=== PATIENT | female | born 1940 | race Caucasian/White ===

== ENCOUNTER → 2016-06-12 | Outpatient (CLI) | payer MEDICARE, OTHER | LOC: GMAL 13:12 | PROVIDERS: ATTEND Family Medicine | DX: D51.3 Other dietary vitamin B12 deficiency anemia (principal); R53.82 Chronic fatigue, unspecified; E55.9 Vitamin D deficiency, unspecified ==

== ENCOUNTER → 2016-06-23 | Outpatient (CLI) | payer MEDICARE, OTHER | LOC: GMAL 14:40 | PROVIDERS: ATTEND Family Medicine | DX: D53.9 Nutritional anemia, unspecified (principal) ==

== ENCOUNTER → 2016-08-05 | Outpatient (CLI) | payer MEDICARE, OTHER ==
--- NOTE | 2016-08-06 10:25 | MRI ---
EXAM DESCRIPTION: Lumbar Spine w/o Contrast CLINICAL HISTORY: 76 years, Female, LOW BACK PAIN COMPARISON: None TECHNIQUE: Multiplanar multi sequence images of the lumbar spine were obtained without gadolinium contrast. FINDINGS: Vertebral body height and alignment are well maintained. No bone marrow signal abnormalities are noted. The conus lies posterior to the L1 body, and the cauda equina is unremarkable. The paraspinal and visualized retroperitoneal soft tissues are unremarkable. At L1-2, there is no disc bulging or facet joint degeneration. At L2-3, there is mild left foraminal and left lateral disc bulging. The facet joints are well maintained, and there is no central canal or neuroforaminal stenosis. At L3-4, there is disc desiccation with mild concentric disc bulging. No facet joint hypertrophy, central canal or neuroforaminal stenosis. At L4-5, there is disc desiccation with concentric disc bulging, worse in the posterior left paramidline and left foraminal positions. The facet joints are well maintained, but findings result in mild to moderate bilateral neuroforaminal stenosis, worse on the left side. Disc material approaches and possibly abuts the left L5 nerve root in the lateral recess. At L5-S1, there is disc desiccation with mild concentric disc bulging and mild bilateral facet joint hypertrophy. No central canal or neuroforaminal stenosis. IMPRESSION: Disc bulging at L4-5 resulting in mild to moderate bilateral neuroforaminal stenosis and possible nerve root abutment as detailed above. Less advanced degenerative changes elsewhere in the lumbar spine without additional stenosis or abutment. Electronically signed by: Bairon Narayan MD 08/06/2016 10:24 AM [employer]
== END | disposition home or self-care (01) ==
LOC: MRI 13:15
PROVIDERS: ATTEND Family Medicine
DX: M54.5 Low back pain (principal)

== ENCOUNTER → 2016-09-09 | Outpatient (CLI) | payer MEDICARE, OTHER ==
--- NOTE | 2016-09-10 08:30 | MRI ---
Study: MRI of the Left Shoulder. Indication: SHOULDER PAIN Technique: Multiplanar, multi sequence MRI of the left shoulder was obtained without intravenous contrast. Comparison: None. Findings: Mild AC joint osteoarthritis. Type II acromion with mild lateral downsloping. Moderate volume subacromial/subdeltoid bursal fluid. Supraspinatus and infraspinatus tendinosis. High-grade bursal surface tearing suspected of the anterior leading edge supraspinatus tendon and may extend full thickness. The tear defect measures approximately 7 mm AP by 4 mm transverse. No tendon retraction. Subscapularis tendinosis. Teres minor tendon intact. Marrow edema anterior greater tuberosity. Rotator cuff musculature normal without atrophy, fatty infiltration, or intramuscular edema. Long head biceps tendon intact. Circumferential labral truncation noted. Mild glenohumeral joint osteoarthritis with a tiny joint effusion. No acute fracture. Port noted within the anterior left chest. Impression: High grade bursal surface tearing anterior leading edge supraspinatus tendon which may extend full thickness. Infraspinatus and subscapularis tendinosis. Circumferential labral truncation noted. Mild glenohumeral joint osteoarthritis. Mild AC joint osteoarthritis. Moderate subacromial/subdeltoid bursal fluid. Electronically signed by: Alek Harris MD 09/10/2016 8:30 AM CDT
== END | disposition home or self-care (01) ==
LOC: MRI 14:06
PROVIDERS: ATTEND Family Medicine
DX: M19.012 Primary osteoarthritis, left shoulder (principal)

== ENCOUNTER → 2016-12-30 | Outpatient (CLI) | payer MEDICARE, OTHER | LOC: GMAL 17:31 | PROVIDERS: ATTEND Family Medicine | DX: D51.3 Other dietary vitamin B12 deficiency anemia (principal); D53.9 Nutritional anemia, unspecified; Z79.899 Other long term (current) drug therapy ==

== ENCOUNTER → 2017-04-01 | Outpatient (CLI) | payer MEDICARE, OTHER | END | disposition home or self-care (01) | LOC: GMAL 18:20 | PROVIDERS: ATTEND Family Medicine | DX: N39.0 Urinary tract infection, site not specified (principal) ==

== ENCOUNTER → 2017-04-03 | Outpatient (CLI) | payer MEDICARE, OTHER | END | disposition home or self-care (01) | LOC: LAB.O 14:49 | PROVIDERS: ATTEND Family Medicine | DX: R19.7 Diarrhea, unspecified (principal) ==

== ENCOUNTER → 2017-04-09 | Outpatient (CLI) | payer MEDICARE, OTHER | END | disposition home or self-care (01) | LOC: GMAL 17:19 | PROVIDERS: ATTEND Family Medicine | DX: H57.04 Mydriasis (principal) ==

== ENCOUNTER 2017-06-30 22:25 | Emergency (ER) | payer MEDICARE, OTHER ==
--- NOTE | 2017-06-30 23:13 | ED.PDOC ---
History of Present Illness - General Chief Complaint: General Stated Complaint: doesn't feel right Time Seen by Provider: 06/30/17 22:57 Source: patient Exam Limitations: no limitations - History of Present Illness Initial Comments: SHE WAS AT A [place] FUNCTION AND SUDDENLY SHE FELT LIGHT HEADED AND WEAK. SOME OF HER FRIENDS BECAME CONCERNED AND THE MEDICS WERE SUMMONED.VITALS WERE NORMAL AND SHE WAS RELEASED. SHE WENT HOME AND CONTINUED FEELING WEAK AND SOMNOLENT AND LIGHT HEADED. SHE ELECTED TO COME TO THE ED. Timing/Duration: 1-3 hours Severity: moderate Improving Factors: nothing Worsening Factors: nothing Associated Symptoms: denies symptoms Allergies/Adverse Reactions: Allergies NO KNOWN ALLERGY Allergy (Verified 03/15/13 10:58) Home Medications: Ambulatory Orders Levocetirizine Dihydrochloride [Levocetirizine Dihydrochl] 5 mg PO HS #0 Estrogens, Conjugated [Premarin] 0.3 mg PO HS #0 03/17/13 Pantoprazole Suspension [Protonix Suspension] 40 mg PO DAILY #0 03/17/13 Nitrofurantoin Monohyd Macro [Nitrofurantoin Monohydrat] 100 mg PO BID 10/13/13 Calcium 600 mg PO DAILY 03/16/16 Clonazepam 2 mg PO HS 03/16/16 Eszopiclone [Lunesta] 3 mg PO HS PRN 03/16/16 Pravastatin Sodium [Pravachol] 40 mg PO DAILY 03/16/16 QUEtiapine FUMARATE [Seroquel] 50 mg PO HS 03/16/16 Sumatriptan Succinate [Imitrex] 100 mg PO DAILY 03/16/16 Review of Systems - Review of Systems Constitutional: States: malaise, weakness EENTM: States: no symptoms reported Respiratory: States: no symptoms reported Cardiology: States: no symptoms reported Gastrointestinal/Abdominal: States: no symptoms reported Genitourinary: States: no symptoms reported Musculoskeletal: States: no symptoms reported Skin: States: no symptoms reported Neurological: States: weakness Endocrine: States: no symptoms reported Hematologic/Lymphatic: States: no symptoms reported Past Medical History (General) - Patient Medical History Hx Seizures: No Hx Stroke: No Hx Asthma: No Hx of COPD: No Hx Cardiac Disorders: No Hx Congestive Heart Failure: No Hx Pacemaker: No Hx Hypertension: No Hx Diabetes: No Hx Cancer: Yes Hx MRSA: No Surgical History: appendectomy - Vaccination History Hx Influenza Vaccination: Yes Hx Pneumococcal Vaccination: Yes - Social History Hx Tobacco Use: Yes Hx Alcohol Use: No Hx Substance Use: No Hx Substance Use Treatment: No Hx Depression: Yes Hx Physical Abuse: No Hx Emotional Abuse: No - Female History Patient is a Female of Child Bearing Age (10 -59 yrs old): No Family Medical History - Family History Mother Family History: Unknown Physical Exam - Physical Exam General Appearance: Alert, Anxious Eye Exam: bilateral abnormal pupil - ANISOCORIA Ears, Nose, Throat: hearing grossly normal, normal ENT inspection, normal pharynx Neck: non-tender, full range of motion, supple Respiratory: chest non-tender, lungs clear, normal breath sounds, no respiratory distress, no accessory muscle use Cardiovascular/Chest: normal peripheral pulses, regular rate, rhythm, no edema, no gallop, no JVD Peripheral Pulses: radial,right: 2+, radial,left: 2+ Gastrointestinal/Abdominal: normal bowel sounds, non tender, soft, no organomegaly, no pulsatile mass Rectal Exam: deferred Back Exam: normal inspection Extremity: normal range of motion Neurologic: no motor/sensory deficits, alert, oriented x 3 Skin Exam: normal color Lymphatic: no adenopathy Progress - Results/Orders Results/Orders: EKG INTERPRETATION: HR OF 70, NV INTERVAL OF 216, QRS OF 72, QTC OF 447, AXIS OF 21 DEGREES. IMPRESSION: SINUS RHYTHM, FIRST DEGREE AV BLOCK. THERE ARE NO TRACINGS TO COMPARE WITH. CBC IS NORMAL, COAGS WNL. CT BRAIN: MILD ATROPHY NO ACUTE PROCESS NOTED. CXR: NO ACUTE PROCESS NOTED AFTER 1000 CC OF NS AND 6MG OF IMITREX SHE FEELS IMPROVED. THE ANISOCORIA IS STILL PRESENT. THE PATIENT VOICES THAT THIS HAS BEEN PRESENT BEFORE PRIMARILY WHENEVER SHE DEVELOPS "SILENT MIGRAINS". AT SOME POINT DR. FONTANA SENT THIS PATIENT TO [facility] FOR THE SAME REASON AND THAT WHERE SHE WAS DIAGNOSED WITH SILENT MIGRAINS. I WILL GIVE ANOTHER LITER OF NS AND THEN I WILL DC THE PATIENT TO F/U WITH DR. FONTANA. FEELS MUCH BETTER, WILL DC HOME. Departure - Departure Clinical Impression: Migraine aura without headache, Volume depletion Time of Disposition: 03:13 Disposition: Discharge to Home or Self Care Condition: Good Departure Forms: ED Discharge - Pt. Copy, Patient Portal Self Enrollment Diet: resume usual diet Activity: increase activity as tolerated Referrals: Kike Fontana III, MD [Primary Care Provider] - 1-2 Weeks Home Medications: Ambulatory Orders Levocetirizine Dihydrochloride [Levocetirizine Dihydrochl] 5 mg PO HS #0 Estrogens, Conjugated [Premarin] 0.3 mg PO HS #0 03/17/13 Pantoprazole Suspension [Protonix Suspension] 40 mg PO DAILY #0 03/17/13 Nitrofurantoin Monohyd Macro [Nitrofurantoin Monohydrat] 100 mg PO BID 10/13/13 Calcium 600 mg PO DAILY 03/16/16 Clonazepam 2 mg PO HS 03/16/16 Eszopiclone [Lunesta] 3 mg PO HS PRN 03/16/16 Pravastatin Sodium [Pravachol] 40 mg PO DAILY 03/16/16 QUEtiapine FUMARATE [Seroquel] 50 mg PO HS 03/16/16 Sumatriptan Succinate [Imitrex] 100 mg PO DAILY 03/16/16 Additional Instructions: FOLLOW UP WITH DR. FONTANA
--- NOTE | 2017-07-01 00:07 | CT ---
EXAM DESCRIPTION: Head CLINICAL HISTORY: ANISOCORIA, LIGHT HEADED COMPARISON: MRI brain from 03/21/2013 TECHNIQUE: Axial CT of the head obtained from the skull apex to the skull base without contrast. FINDINGS: No acute intracranial hemorrhage identified. No mass, mass effect, shift of the midline, abnormal extra-axial fluid collection or CT evidence of acute ischemic change identified. The ventricular system and sulcal spaces are mildly enlarged compatible with mild cerebral atrophy. Scattered areas of hypodensity throughout the supratentorial white matter are nonspecific and may be related to chronic small vessel ischemic change. The visualized paranasal sinuses and the mastoids are clear. No skull fracture identified. Visualized orbits and globes are unremarkable. Atherosclerotic calcification of the intracranial internal carotid arteries. DLP: 967.47 mGy-cm IMPRESSION: 1. No acute intracranial abnormality by CT criteria. This exam was performed according to our departmental dose-optimization program, which includes automated exposure control, adjustment of the mA and/or kV according to patient size and/or use of iterative reconstruction technique. 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
--- NOTE | 2017-07-01 00:08 | RAD ---
EXAM DESCRIPTION: Chest,1 View CLINICAL HISTORY: SOB COMPARISON: 04/12/2016 FINDINGS: Single frontal view of the chest. Left subclavian Mediport with tip in the SVC. Postoperative change in the left chest. Atherosclerotic calcification tortuosity of the thoracic aorta. Heart is not enlarged. No consolidation, pneumothorax, or pleural effusion. No displaced rib fractures identified. Upper abdominal soft tissues are unremarkable. IMPRESSION: 1. No acute pulmonary process identified. Electronically signed by: Torin Graham 07/01/2017 12:07 AM [facility]
[2017-07-01] MEDS ORDERED: SODIUM CHLORIDE 0.9% 1000ML 1,000 ML IVS ONE ×2 (00:18→01:58)
[2017-07-01] MEDS ORDERED: SUMAtriptan SUCCINATE INJ 6 MG/0.5 ML VIAL SUBCU ONE (00:42)
[2017-07-01 02:48] VITALS: O2SAT 99
[2017-07-01 03:37] VITALS: BP 122/73; TEMP 96.8
== END 2017-07-01 04:06 | disposition home or self-care (01) ==
LOC: ER 22:25
DX: G43.109 Migraine with aura, not intractable, without status migrainosus (principal); E86.9 Volume depletion, unspecified; F32.9 Major depressive disorder, single episode, unspecified; Z87.891 Personal history of nicotine dependence
CPT/HCPCS: 36415; 70450; 71045; 80053; 85025; 85610; 85651; 85730; 93005; J3030; J7030

== ENCOUNTER → 2017-09-08 | Outpatient (CLI) | payer MEDICARE, OTHER ==
--- NOTE | 2017-09-08 21:05 | MRI ---
EXAM DESCRIPTION: Lumbar Spine w/o Contrast MRI. CLINICAL HISTORY: LOW BACK PAIN COMPARISON: MRI lumbar spine 08/05/2016. TECHNIQUE: Multiplanar, multiple standard sequences, non contrast MRI, lumbar spine. FINDINGS: L5-S1: Disc desiccation with disc space preserved. Posterior midline 3 mm bulge. Mild narrowing of the left foramen with right foramen patent. Canal patent. Minimal arthrosis of the left facet. L4-5: Disc desiccation. Posterior left paracentral 5 mm protrusion encroaching on the thecal sac and abutting the descending left L5 nerve in the left subarticular recess. Moderate left paracentral canal narrowing. Bilateral foramina are patent. Posterior elements unremarkable. L3-4: Minimal disc desiccation. Minimal disc space loss. Tiny posterior midline bulge. Posterior elements unremarkable. Canal and foramina are patent. L2-3: Disc desiccation with disc space preserved. No bulging. Facets are unremarkable. Posterior flavum ligaments with mild hypertrophy. L1-2: Normal signal in the disc and disc space preserved and no bulging. Posterior elements unremarkable. Canal and foramina are patent. T12-L1: Normal signal in the disc and disc space preserved with no bulging. Posterior elements unremarkable. Canal and foramina are patent. Conus terminates at L1. Levoscoliosis L2-L4. Paravertebral soft tissues show muscle atrophy. Normal marrow signal in the remaining vertebral bodies and the posterior elements. Vertebral bodies are not compressed at any level. IMPRESSION: 1. Posterior midline bulge L5-S1 disc. Mild narrowing of the left foramen. Minimal arthrosis of the left facet. 2. Desiccated L4-5 disc with left paracentral protrusion encroaching on the thecal sac and abutting the descending left L5 nerve in the lateral recess. Stable since the prior study. Bilateral foramina are patent. Electronically signed by: Felton Monroe MD 09/08/2017 9:04 PM CDT Workstation: [id number]
== END | disposition home or self-care (01) ==
LOC: MRI 13:00
PROVIDERS: ATTEND Family Medicine
DX: M51.36 Other intervertebral disc degeneration, lumbar region (principal); M51.26 Other intervertebral disc displacement, lumbar region

== ENCOUNTER → 2017-10-02 | Outpatient (CLI) | payer MEDICARE, OTHER ==
--- NOTE | 2017-10-04 12:06 | MRI ---
EXAM DESCRIPTION: Brain w/wo Contrast: Magnetic Resonance Imaging. CLINICAL HISTORY: HEADACHES COMPARISON: MRI scan of the brain with and without gadolinium IV contrast 03/21/2013. TECHNIQUE: Multiplanar, high-field MRI, multiple conventional sequences, without and with gadolinium IV contrast. No adverse reactions. Multiple axial diffusion sequences. FINDINGS: Scattered foci of bilateral hyperintense FLAIR and T2-weighted signal in the periventricular white matter and go-white matter junctions of the cerebral hemispheres. . Normal signal in the bilateral basal ganglia. No hemorrhage, no cerebral edema, no mass-effect. Normal contrast enhancement. Normal signal in the brainstem and cerebellar hemispheres. No hemorrhage, no cerebral edema, no mass-effect. Normal contrast enhancement. Concordance of the diffusion and non-diffusion sequences with no evidence of acute or subacute infarction. Cortical sulci, ventricles, and other CSF spaces, and the subdural spaces are normally configured except more prominent cortical sulci abutting the frontal lobes. This is chronic. No effacement or displacement. No midline shift. No extra-axial hemorrhage. Normal contrast enhancement. Normal flow signal void in the major vessels of the [place], and the venous sinuses. IACs are symmetric bilaterally. Normal signal in the bilateral mastoid air cells. No mass effect in the bilateral Cerebellopontine angles. Normal contrast enhancement. Pituitary gland occupies most of the sella. Normal contrast enhancement. Base of the cerebellar tonsils is at the level of the foramen magnum. No significant abnormalities in the paranasal sinuses. The bony calvarium is intact. IMPRESSION: 1. Minimal focal hyperintensities in the white matter of the cerebral hemispheres predominantly. Ventricular. This is most likely related to cerebral microvascular disease. No hemorrhage or abnormal contrast enhancement in these lesions. No diffusion restriction. Less likely related to migraine headaches, demyelination process, vasculitis, or inflammation. Stable since the prior study March 2013. 2. Normal MRI diffusion noncontrast brain scan with no evidence of acute or subacute infarction. Electronically signed by: Felton Monroe MD 10/04/2017 12:04 PM CDT
== END ==
LOC: MRI 11:00
PROVIDERS: ATTEND Family Medicine
DX: R51 Headache (principal); R53.82 Chronic fatigue, unspecified; D51.3 Other dietary vitamin B12 deficiency anemia; R41.89 Other symptoms and signs involving cognitive functions and awareness; E34.9 Endocrine disorder, unspecified

== ENCOUNTER 2017-10-16 16:09 | Emergency (ER) | payer MEDICARE, OTHER ==
--- NOTE | 2017-10-16 16:44 | ED.PDOC ---
History of Present Illness - General Chief Complaint: Neuro Symptoms/Deficits Stated Complaint: Episodes of confusion Time Seen by Provider: 10/16/17 16:10 Source: patient Exam Limitations: other - MILD APHASIA Additional Information: PT HAS BEEN UNDERGOING OUTPT WORKUP FOR POSS EARLY DEMENTIA. TODAY SHE WAS GOING TO A LOCATION IN [place]OWN SHE HAD BEEN TO ON MULTIPLE OCCASIONS AND GOT LOST. SHE SHOWED UP AT HER DOCTOR'S OFFICE DISTRESSED. HE REQUESTED SHE COME TO ER FOR EVALUATION AND ADMISSION. - History of Present Illness Timing/Duration: other - OCCURED THIS AM BUT PT MISUNDERSTOOD AND DID NOT SHOW UP TO ER UNTIL MUCH LATER. Improving Factors: nothing Worsening Factors: nothing Associated Symptoms: denies symptoms Allergies/Adverse Reactions: Allergies NO KNOWN ALLERGY Allergy (Verified 03/15/13 10:58) Home Medications: Ambulatory Orders Levocetirizine Dihydrochloride [Levocetirizine Dihydrochl] 5 mg PO HS #0 Estrogens, Conjugated [Premarin] 0.3 mg PO HS #0 03/17/13 Pantoprazole Suspension [Protonix Suspension] 40 mg PO DAILY #0 03/17/13 Nitrofurantoin Monohyd Macro [Nitrofurantoin Monohydrat] 100 mg PO BID 10/13/13 Calcium 600 mg PO DAILY 03/16/16 Clonazepam 2 mg PO HS 03/16/16 Eszopiclone [Lunesta] 3 mg PO HS PRN 03/16/16 Pravastatin Sodium [Pravachol] 40 mg PO DAILY 03/16/16 QUEtiapine FUMARATE [Seroquel] 50 mg PO HS 03/16/16 Sumatriptan Succinate [Imitrex] 100 mg PO DAILY 03/16/16 Review of Systems - Review of Systems Constitutional: States: other - HER POST SCALP APPEARS WET. PT DOES NOT KNOW HOW. . Denies: chills, fever EENTM: States: no symptoms reported Respiratory: Denies: cough, orthopnea, short of breath Cardiology: Denies: chest pain, palpitations, syncope Gastrointestinal/Abdominal: States: no symptoms reported Genitourinary: States: no symptoms reported Musculoskeletal: States: no symptoms reported Skin: States: no symptoms reported Neurological: States: other - PT HAS HAD SOME MEMORY DIFFICULTY. Denies: headache, numbness, weakness Endocrine: States: no symptoms reported Hematologic/Lymphatic: States: no symptoms reported Past Medical History (General) - Patient Medical History Hx Seizures: No Hx Stroke: No Hx Asthma: No Hx of COPD: No Hx Cardiac Disorders: Yes - Hypercholesterolemia Hx Congestive Heart Failure: No Hx Pacemaker: No Hx Hypertension: No Hx Diabetes: No Hx Gastroesophageal Reflux: Yes Hx Cancer: Yes Hx MRSA: No Surgical History: noncontributory - Vaccination History Hx Influenza Vaccination: Yes - 2017 Hx Pneumococcal Vaccination: Yes - Social History Hx Tobacco Use: No Hx Alcohol Use: No Hx Substance Use: No Hx Substance Use Treatment: No Hx Depression: Yes Hx Physical Abuse: No Hx Emotional Abuse: No Family Medical History - Family History Mother Family History: Unknown Physical Exam - Physical Exam General Appearance: Alert, No apparent distress Eye Exam: bilateral normal Ears, Nose, Throat: hearing grossly normal, normal ENT inspection, normal pharynx Neck: non-tender, full range of motion, supple Respiratory: lungs clear, normal breath sounds, no respiratory distress Cardiovascular/Chest: regular rate, rhythm, no murmur Gastrointestinal/Abdominal: normal bowel sounds, non tender, soft, no organomegaly Back Exam: normal inspection, no CVA tenderness Extremity: normal range of motion, normal inspection, no pedal edema 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 OLD LAB REVIEWED, CURRENTLY STABLE. D/W [facility] D/W DR FONTANA. OK TO FOLLOW ON THURSDAY. - EKG/XRAY/CT XRAY: chest - PORT L CHEST, POST SURGICAL CHANGES. MALICK. Departure - Departure Clinical Impression: Altered mental state Qualifiers: Altered mental status type: transient alteration of awareness Qualified Code(s) : R40.4 - Transient alteration of awareness Time of Disposition: 19:09 Disposition: Discharge to Home or Self Care Condition: Good Departure Forms: ED Discharge - Pt. Copy, Patient Portal Self Enrollment Instructions: DI for Altered Mental Status Referrals: Kike Fontana III, MD [Primary Care Provider] - 1-2 Weeks Home Medications: Ambulatory Orders Levocetirizine Dihydrochloride [Levocetirizine Dihydrochl] 5 mg PO HS #0 Estrogens, Conjugated [Premarin] 0.3 mg PO HS #0 03/17/13 Pantoprazole Suspension [Protonix Suspension] 40 mg PO DAILY #0 03/17/13 Nitrofurantoin Monohyd Macro [Nitrofurantoin Monohydrat] 100 mg PO BID 10/13/13 Calcium 600 mg PO DAILY 03/16/16 Clonazepam 2 mg PO HS 03/16/16 Eszopiclone [Lunesta] 3 mg PO HS PRN 03/16/16 Pravastatin Sodium [Pravachol] 40 mg PO DAILY 03/16/16 QUEtiapine FUMARATE [Seroquel] 50 mg PO HS 03/16/16 Sumatriptan Succinate [Imitrex] 100 mg PO DAILY 03/16/16
--- NOTE | 2017-10-16 16:52 | RAD ---
EXAM DESCRIPTION: Chest,2 Views CLINICAL HISTORY: 77 years Female, AMS COMPARISON: 30 June 2017 TECHNIQUE: PA/lateral FINDINGS: An [id number] catheter seen in place on the patient's left. The lungs are free of acute infiltrate or evidence of effusion. Surgical clips are seen about the left anterior chest wall. The heart is within range of normal. IMPRESSION: I see no acute cardiopulmonary pathology or significant interval change. Electronically signed by: Kike Ga MD 10/16/2017 4:50 PM CDT
--- NOTE | 2017-10-16 18:35 | CT ---
EXAM DESCRIPTION: Head CLINICAL HISTORY: AMS COMPARISON: June 30, 2017 Technique: Contiguous axial images of the brain were obtained without the administration of intravenous contrast. This exam was performed according to our departmental dose-optimization program which includes use of Automated Exposure Control, adjustment of the mA and/or kV according to patient size and/or use of iterative reconstruction technique. Findings: Brain: Moderate cerebral atrophy. Periventricular and deep white matter hypodensities, most commonly due to nonspecific white matter chronic microvascular ischemia.No hemorrhage. No territorial infarct. No mass effect. No herniation. Ventricles: Within normal limits for patient's age. Bones: No acute osseous abnormality. Paranasal sinuses: Unremarkable. Mastoid air cells: Unremarkable. Soft tissues: No acute abnormality. IMPRESSION: No acute intracranial abnormalities. Unchanged moderate cerebral atrophy and nonspecific white matter chronic microvascular ischemic changes. Electronically signed by: Dilip Garcia MD 10/16/2017 6:34 PM CDT
[2017-10-16 19:17] VITALS: BP 154/85; TEMP 98.5; O2SAT 95
== END 2017-10-16 19:17 | disposition home or self-care (01) ==
LOC: ER 16:09
DX: R40.4 Transient alteration of awareness (principal); E78.00 Pure hypercholesterolemia, unspecified; K21.9 Gastro-esophageal reflux disease without esophagitis; Z85.9 Personal history of malignant neoplasm, unspecified; Z79.899 Other long term (current) drug therapy

== ENCOUNTER → 2017-11-30 | Outpatient (CLI) | payer MEDICARE, OTHER | LOC: GMAL 14:28 | PROVIDERS: ATTEND Family Medicine | DX: R30.0 Dysuria (principal) ==

== ENCOUNTER → 2018-02-22 | Outpatient (CLI) | payer MEDICARE, OTHER ==
--- NOTE | 2018-02-22 10:44 | US ---
EXAM DESCRIPTION: Renal Arteries CLINICAL HISTORY: 77 years Female, HTN I10 COMPARISON: CT of the abdomen pelvis September 18, 2014. TECHNIQUE: Routine 2-D window ultrasound was performed and showed to Doppler interrogation of the renal vasculature. FINDINGS: Right kidney is normal in size measuring up to 11 cm in length. Diffuse renal cortical atrophy is seen to average parenchymal thickness measuring 0.9 cm. Corticomedullary differentiation is maintained. No hydronephrosis or nephrolithiasis is demonstrated. No aggressive renal lesions are evident. Renal arterial Doppler shows normal peak systolic velocities. The proximal right renal artery is not well seen to characterize. The mid and distal renal artery show normal peak systolic velocities and resistive indices. The left kidney is normal in size measuring up to 9.2 cm in length. The cortical thickness is normal. Corticomedullary differentiation is maintained. No hydronephrosis or nephrolithiasis is demonstrated. Aggressive renal lesions are present. Renal arterial Doppler shows normal peak systolic velocities. The proximal left renal artery is not well seen to characterize. The mid and distal renal artery show normal peak systolic velocities and resistive indices. IMPRESSION: Nonspecific right renal cortical atrophy. Normal-appearing left kidney. Limited evaluation of the proximal bilateral renal arteries. The visualized portions of the bilateral renal arteries are unremarkable excluding a high-grade renal artery stenosis. Electronically signed by: Doron Hinson MD 02/22/2018 10:43 AM CDT
--- NOTE | 2018-02-22 10:46 | US ---
EXAM DESCRIPTION: Renal ultrasound. CLINICAL HISTORY: 77 years Female, HTN I10 COMPARISON: CT of the abdomen pelvis September 18, 2014. TECHNIQUE: Routine 2-D renal ultrasound was performed in addition to Doppler interrogation of the renal vasculature. FINDINGS: Right kidney is normal in size measuring up to 11 cm in length. Diffuse renal cortical atrophy is seen to average parenchymal thickness measuring 0.9 cm. Corticomedullary differentiation is maintained. No hydronephrosis or nephrolithiasis is demonstrated. No aggressive renal lesions are evident. Renal arterial Doppler shows normal peak systolic velocities. The proximal right renal artery is not well seen to characterize. The mid and distal renal artery show normal peak systolic velocities and resistive indices. The left kidney is normal in size measuring up to 9.2 cm in length. The cortical thickness is normal. Corticomedullary differentiation is maintained. No hydronephrosis or nephrolithiasis is demonstrated. Aggressive renal lesions are present. Renal arterial Doppler shows normal peak systolic velocities. The proximal left renal artery is not well seen to characterize. The mid and distal renal artery show normal peak systolic velocities and resistive indices. IMPRESSION: Nonspecific right renal cortical atrophy. Normal-appearing left kidney. Limited evaluation of the proximal bilateral renal arteries. The visualized portions of the bilateral renal arteries are unremarkable excluding a high-grade renal artery stenosis. Electronically signed by: Doron Hinson MD 02/22/2018 10:44 AM CDT
== END ==
LOC: US 09:00
PROVIDERS: ATTEND Family Medicine
DX: I10 Essential (primary) hypertension (principal); N26.1 Atrophy of kidney (terminal)

== ENCOUNTER → 2018-06-22 | Outpatient (CLI) | payer MEDICARE, OTHER | LOC: GMAL 11:14 | PROVIDERS: ATTEND Family Medicine | DX: D51.3 Other dietary vitamin B12 deficiency anemia (principal); R53.82 Chronic fatigue, unspecified; E55.9 Vitamin D deficiency, unspecified ==

== ENCOUNTER 2018-09-12 03:00 | Emergency (ER) | payer MEDICARE, OTHER ==
[2018-09-12 03:19] VITALS: O2SAT 98
[2018-09-12] MEDS: ONDANSETRON INJ 4 MG/2 ML VIAL IV ONE (03:47)
[2018-09-12] MEDS: SODIUM CHLORIDE 0.9% 1000ML 1,000 ML IVS ONE (03:48)
--- NOTE | 2018-09-12 05:05 | ED.PDOC ---
History of Present Illness - General Chief Complaint: GI Problem Stated Complaint: nausea, vomiting Time Seen by Provider: 09/12/18 03:30 Information Source: patient, Vital Signs reviewed Exam Limitations: no limitations - History of Present Illness Initial Comments: c/o N/V/D soon after eating lunch today. No abdominal pain or bleeding. Feels weak. Timing/Duration: 7-24 hours Improving Factors: nothing, other - no relief with Lomotil Worsening Factors: nothing Associated Symptoms: diarrhea, fatigue, nausea/vomiting, weakness Review of Systems - Review of Systems Constitutional: States: no symptoms reported EENTM: States: no symptoms reported Respiratory: States: no symptoms reported Cardiology: States: no symptoms reported Gastrointestinal/Abdominal: States: see HPI. Denies: abdominal pain Genitourinary: States: no symptoms reported Musculoskeletal: States: no symptoms reported Skin: States: no symptoms reported Neurological: States: see HPI Hematologic/Lymphatic: States: no symptoms reported Past Medical History (General) - Patient Medical History Hx Seizures: No Hx Stroke: No Hx Dementia: No Hx Asthma: No Hx of COPD: No Hx Cardiac Disorders: No Hx Congestive Heart Failure: No Hx Pacemaker: No Hx Hypertension: Yes Hx Thyroid Disease: No Hx Diabetes: No Hx Gastroesophageal Reflux: No Hx Renal Disease: No Hx Cancer: Yes - rec'd chemotherapy. Hx of HIV: No Hx MRSA: No Surgical History: no surgical history - Vaccination History Hx Tetanus, Diphtheria Vaccination: No Hx Influenza Vaccination: Yes Hx Pneumococcal Vaccination: Yes - Social History Hx Tobacco Use: No Hx Alcohol Use: No Hx Substance Use: No Hx Substance Use Treatment: No Hx Depression: Yes Hx Physical Abuse: No Hx Emotional Abuse: No Family Medical History - Family History Mother Family History: Unknown Physical Exam - Physical Exam General Appearance: Alert, Comfortable, No apparent distress Eyes, Ears, Nose, Throat Exam: normal ENT inspection, other - dry oral mucosa Neck: supple, normal inspection Respiratory: no respiratory distress Cardiovascular/Chest: regular rate, rhythm, no edema, no JVD Gastrointestinal/Abdominal: non tender, soft Extremity: normal inspection, no pedal edema Neurologic: alert, normal mood/affect, oriented x 3 Skin Exam: normal color, warm/dry Special Observations: No evidence of discomfort Progress - Progress Progress: 09/12/18 05:03 Asymptomatic. Tolerating PO. No vomiting or diarrhea here. 09/12/18 06:14 78 yo female with vomiting & diarrhea for approx 12 hrs without hematemesis or hematochezia. No abdominal pain. Clinically appeared mildly dehydrated. She improved with Zofran & IVF. Her BUN/Cr was slightly elevated. - Results/Orders Results/Orders: WBC 3 Plt 107 Departure - Departure Clinical Impression: Acute diarrhea, Volume depletion Vomiting Qualifiers: Vomiting type: unspecified Vomiting Intractability: non-intractable Nausea presence: with nausea Qualified Code(s): R11.2 - Nausea with vomiting, unspecified Time of Disposition: 05:04 Disposition: Discharge to Home or Self Care Condition: Fair Departure Forms: ED Discharge - Pt. Copy, Patient Portal Self Enrollment Instructions: DI for Diarrhea and Traveler's Diarrhea -- Adult Diet: bland diet Referrals: Kike Fontana III, MD [Primary Care Provider] - 1-2 Days Home Medications: Ambulatory Orders RX: Levocetirizine Dihydrochloride [Levocetirizine Dihydrochl] 5 mg PO HS #0 03/16/13 RX: Estrogens, Conjugated [Premarin] 0.3 mg PO HS #0 03/17/13 RX: Pantoprazole Suspension [Protonix Suspension] 40 mg PO DAILY #0 03/17/13 RX: Nitrofurantoin Monohyd Macro [Nitrofurantoin Monohydrat] 100 mg PO BID 10/13/13 Pravastatin Sodium [Pravachol] 40 mg PO DAILY 03/16/16 RX: Calcium 600 mg PO DAILY 03/16/16 RX: Clonazepam 2 mg PO HS 03/16/16 RX: Eszopiclone [Lunesta] 3 mg PO HS PRN 03/16/16 RX: QUEtiapine FUMARATE [Seroquel] 50 mg PO HS 03/16/16 Sumatriptan Succinate [Imitrex] 100 mg PO DAILY 03/16/16
[2018-09-12 05:11] VITALS: BP 100/66; TEMP 97.8
== END 2018-09-12 05:09 | disposition home or self-care (01) ==
LOC: ER 03:00
DX: R11.2 Nausea with vomiting, unspecified (principal); R19.7 Diarrhea, unspecified; E86.9 Volume depletion, unspecified; F32.9 Major depressive disorder, single episode, unspecified; I10 Essential (primary) hypertension; Z85.9 Personal history of malignant neoplasm, unspecified; Z92.21 Personal history of antineoplastic chemotherapy
CPT/HCPCS: 36415; 80053; 85025; J2405; J7030

== ENCOUNTER → 2019-07-26 | Outpatient (CLI) | payer MEDICARE, OTHER | LOC: GMAL 14:18 | PROVIDERS: ATTEND Family Medicine | DX: D51.3 Other dietary vitamin B12 deficiency anemia (principal); R53.82 Chronic fatigue, unspecified; E55.9 Vitamin D deficiency, unspecified; I10 Essential (primary) hypertension; E78.49 Other hyperlipidemia ==

== ENCOUNTER → 2020-01-04 | Outpatient (CLI) | payer MEDICARE, OTHER | LOC: GMAL 14:59 | PROVIDERS: ATTEND Family Medicine | DX: D51.3 Other dietary vitamin B12 deficiency anemia (principal); R53.82 Chronic fatigue, unspecified; E55.9 Vitamin D deficiency, unspecified; Z79.899 Other long term (current) drug therapy; E78.49 Other hyperlipidemia ==

== ENCOUNTER 2020-01-18 13:48 | Emergency (ER) | payer MEDICARE, OTHER ==
--- NOTE | 2020-01-18 14:00 | ED.PDOC ---
History of Present Illness - General Time Seen by Provider: 01/18/20 13:54 Source: patient, RN notes reviewed, Vital Signs reviewed - History of Present Illness Initial Comments: 79 y/o female riding with a friend to [place] noticed that she couldn't see the stripes on the road and fell poorly. They stopped and she went to the bathroom where she had a little diarrhea and a syncopal episode. She got up but then started to pass out again when someone also in the public bathroom caught her and kept her from hitting the floor hard. She has had one syncopal episode 3-4 yrs ago. She has had undue stress lately, a glass of wine last night. No hx of heart disease, no recent travel Timing/Prior Episodes: remote history Precipitating Factors: blurred vision, lightheadedness Context: standing, emotional stress Loss of Consciousness: unsure Current Symptoms: back to normal Allergies/Adverse Reactions: Allergies NO KNOWN ALLERGY Allergy (Verified 03/15/13 10:58) Home Medications: Ambulatory Orders Nitrofurantoin Monohyd Macro [Nitrofurantoin Monohydrat] 50 mg PO DAILY 10/13/13 Clonazepam 1 mg PO HS 03/16/16 Eszopiclone [Lunesta] 2 mg PO HS PRN 03/16/16 Pravastatin Sodium [Pravachol] 20 mg PO DAILY 03/16/16 QUEtiapine FUMARATE [Seroquel] 50 mg PO HS 03/16/16 Alprazolam [Xanax] 1 mg PO PRN 01/18/20 Buspirone HCl [Buspirone Hydrochloride] 5 mg PO DAILY 01/18/20 Carvedilol 6.25 mg PO BID 01/18/20 Memantine HCl [Memantine Hydrochloride E] 21 mg PO DAILY 01/18/20 Pantoprazole Suspension [Protonix Suspension] 40 mg PO BID 01/18/20 Review of Systems - Review of Systems Constitutional: States: weakness EENTM: States: blurred vision Respiratory: States: no symptoms reported, see HPI Cardiology: States: no symptoms reported, see HPI Gastrointestinal/Abdominal: States: diarrhea Musculoskeletal: States: no symptoms reported Neurological: States: see HPI, weakness Hematologic/Lymphatic: States: no symptoms reported Past Medical History (General) - Patient Medical History Hx Seizures: No Hx Stroke: No Hx Dementia: No Hx Asthma: No Hx of COPD: No Hx Cardiac Disorders: No Hx Congestive Heart Failure: No Hx Pacemaker: No Hx Hypertension: Yes Hx Thyroid Disease: No Hx Diabetes: No Hx Gastroesophageal Reflux: No Hx Renal Disease: No Hx Cancer: Yes - rec'd chemotherapy. Hx of HIV: No Hx MRSA: No - Vaccination History Hx Tetanus, Diphtheria Vaccination: No Hx Influenza Vaccination: Yes Hx Pneumococcal Vaccination: Yes - Social History Hx Tobacco Use: No Hx Alcohol Use: No Hx Substance Use: No Hx Substance Use Treatment: No Hx Depression: Yes Hx Physical Abuse: No Hx Emotional Abuse: No Physical Exam - Physical Exam General Appearance: Alert, Anxious, Well Developed, Well Groomed Eyes, Ears, Nose, Throat Exam: PERRL/EOMI, normal ENT inspection, TMs normal, pharynx normal Neck: non-tender, full range of motion, supple Cardiovascular/Respiratory: regular rate, rhythm, no M/R/G, normal peripheral pulses, no JVD, normal breath sounds, no respiratory distress Gastrointestinal/Abdominal: normal bowel sounds, non tender, soft, no organomegaly Back Exam: normal inspection, no CVA tenderness Extremity: normal range of motion, non-tender, normal inspection, no pedal e tona, no calf tenderness 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 Copy, Patient Portal Self Enrollment Referrals: Kike Fontana III, MD [Primary Care Provider] - 1-2 Weeks Home Medications: Ambulatory Orders Nitrofurantoin Monohyd Macro [Nitrofurantoin Monohydrat] 50 mg PO DAILY 10/13/13 Clonazepam 1 mg PO HS 03/16/16 Eszopiclone [Lunesta] 2 mg PO HS PRN 03/16/16 Pravastatin Sodium [Pravachol] 20 mg PO DAILY 03/16/16 QUEtiapine FUMARATE [Seroquel] 50 mg PO HS 03/16/16 Alprazolam [Xanax] 1 mg PO PRN 01/18/20 Buspirone HCl [Buspirone Hydrochloride] 5 mg PO DAILY 01/18/20 Carvedilol 6.25 mg PO BID 01/18/20 Memantine HCl [Memantine Hydrochloride E] 21 mg PO DAILY 01/18/20 Pantoprazole Suspension [Protonix Suspension] 40 mg PO BID 01/18/20
[2020-01-18] MEDS ORDERED: SODIUM CHLORIDE 0.9% (FLUSH) 10 ML SYG IV PRN (14:03)
[2020-01-18] MEDS ORDERED: ACETAMINOPHEN 500 MG TAB PO ONE (15:23)
--- NOTE | 2020-01-18 15:23 | RAD ---
EXAM DESCRIPTION: Chest,1 View CLINICAL HISTORY: 79 years Female, syncope COMPARISON: 10/16/2017 FINDINGS: One view/radiograph Heart size and pulmonary vessels are within normal limits. There is no pneumothorax or pleural effusion. The lungs are clear bilaterally. The soft tissues are unremarkable. No acute osseous findings. Left chest wall pacemaker tip overlying the SVC. IMPRESSION: No acute cardiopulmonary abnormality. Electronically signed by: Sancho Tyson MD 01/18/2020 3:21 PM CDT
[2020-01-18] MEDS ORDERED: SODIUM CHLORIDE 0.9% 1000ML 1,000 ML IVS ONE (15:34)
--- NOTE | 2020-01-18 17:37 | CT ---
EXAM: CT head CLINICAL INDICATION: Patient fell, head trauma COMPARISON: 10/16/2017 TECHNIQUE: CT scan was done using contiguous axial 5 mm sections through the brain. This exam was performed according to our departmental dose-optimization program, which includes automated exposure control, adjustment of the mA and/or kV according to patient size and/or use of iterative reconstruction technique. FINDINGS: There is no midline shift, mass effect, or extraaxial fluid collection. There is no evidence of acute intracranial hemorrhage, mass lesion, or cerebral edema. Moderate diffuse cerebral atrophy is noted. Bone window images reveal no evidence of a skull fracture. IMPRESSION: No evidence of an acute intracranial process. Electronically signed by: Zhao Mejias MD 01/18/2020 4:46 PM CDT
[2020-01-18 19:05] VITALS: BP 153/90; TEMP 98.2; O2SAT 98
== END 2020-01-18 19:05 | disposition home or self-care (01) ==
LOC: ER 13:48
DX: R55 Syncope and collapse (principal); E86.9 Volume depletion, unspecified; R19.7 Diarrhea, unspecified; F32.9 Major depressive disorder, single episode, unspecified; I10 Essential (primary) hypertension; Z85.9 Personal history of malignant neoplasm, unspecified; Z92.21 Personal history of antineoplastic chemotherapy; Z79.899 Other long term (current) drug therapy
CPT/HCPCS: 36415; 70450; 71045; 80048; 80076; 81001; 82550; 82553; 84484; 85025; 85379; 85610; 85730; 93005; 94760; J7030

== ENCOUNTER 2020-03-08 11:11 | Emergency (ER) | payer MEDICARE, OTHER ==
[2020-03-08] MEDS ORDERED: SODIUM CHLORIDE 0.9% (FLUSH) 10 ML SYG IV PRN (11:32)
[2020-03-08] MEDS ORDERED: ASPIRIN TABLET 325 MG TAB PO ONE (11:32)
[2020-03-08 11:56] VITALS: TEMP 97.8
--- NOTE | 2020-03-08 12:33 | CT ---
EXAM DESCRIPTION: Head CLINICAL HISTORY: blurry vision now resolved COMPARISON: January 18, 2020 TECHNIQUE: Non contrast cranial CT This exam was performed according to our departmental dose-optimization program, which includes automated exposure control, adjustment of the mA and/or kV according to patient size and/or use of iterative reconstruction technique. FINDINGS: Modest ventriculomegaly and prominence of the subarachnoid space particularly in the frontal region extending to the vertex of the calvarium. This pattern is unchanged from prior study. No ventricular or subarachnoid or parenchymal hemorrhage noted. No subdural hematoma or midline shift or mass effect seen. Modest prominence of the third ventricle to a much lesser extent fourth ventricle with very little posterior fossa atrophy noted. New focal low-density within either cerebral cortex or white matter or within the basal ganglia to confirm an acute new ischemic event is not apparent. No enlargement of the sella turcica or abnormality in the sellar or suprasellar region noted on sagittal imaging. Bony calvarium is intact and the upper paranasal sinuses and petrous ridges normally pneumatized. IMPRESSION: 1. Stable modest ventriculomegaly and age-related atrophic changes particularly in the frontal and parietal regions over the cerebral convexity, unchanged. 2. No acute intracranial process or evidence of hemorrhage. Electronically signed by: Jalen Whiteside MD 03/08/2020 12:32 PM CDT
--- NOTE | 2020-03-08 12:35 | RAD ---
EXAM DESCRIPTION: Chest,1 View CLINICAL HISTORY: 79 years Female, dizziness COMPARISON: January 18, 2020 TECHNIQUE: AP portable chest. FINDINGS: Fair expansion of the lungs is evident without consolidation, layering effusion, or large mass. [id number] on the left side from a left subclavian route is present with the catheter tip in the distal innominate vein near the vena cava. Heart size and vascularity appear normal for AP technique and degree of inspiration. The aorta is tortuous and calcified. No gross bony, hilar, or mediastinal abnormalities are noted. IMPRESSION: No acute cardiopulmonary disease. Electronically signed by: Jalen Whiteside MD 03/08/2020 12:33 PM CDT
[2020-03-08] MEDS ORDERED: SODIUM CHLORIDE 0.9% 500ML 500 ML IVS ONE (12:36)
--- NOTE | 2020-03-08 13:08 | ED.PDOC ---
History of Present Illness - General Chief Complaint: Neuro Symptoms/Deficits Stated Complaint: ams Time Seen by Provider: 03/08/20 11:18 Additional Information: The patient is a 79-year-old female presents emergency department with complaints of dizziness. She states that yesterday at about 7 PM started having blurry vision and dizziness. She states that she went home and slept and woke up this morning and blurry vision has resolved but she still feels dizzy and weak. She states she has had similar episodes in the past. Denies any weakness - History of Present Illness Timing/Duration: other - 16 hours Severity: moderate Improving Factors: nothing Worsening Factors: nothing Associated Symptoms: denies symptoms Allergies/Adverse Reactions: Allergies NO KNOWN ALLERGY Allergy (Verified 03/08/20 11:57) Home Medications: Ambulatory Orders Nitrofurantoin Monohyd Macro [Nitrofurantoin Monohydrat] 50 mg PO DAILY 10/13/13 Clonazepam 1 mg PO HS 03/16/16 Eszopiclone [Lunesta] 2 mg PO HS PRN 03/16/16 Pravastatin Sodium [Pravachol] 20 mg PO DAILY 03/16/16 QUEtiapine FUMARATE [Seroquel] 50 mg PO HS 03/16/16 Alprazolam [Xanax] 1 mg PO PRN 01/18/20 Buspirone HCl [Buspirone Hydrochloride] 5 mg PO DAILY 01/18/20 Carvedilol 6.25 mg PO BID 01/18/20 Memantine HCl [Memantine Hydrochloride E] 21 mg PO DAILY 01/18/20 Pantoprazole Suspension [Protonix Suspension] 40 mg PO BID 01/18/20 Review of Systems - Review of Systems Constitutional: Denies: chills, diaphoresis EENTM: States: blurred vision - Now resolved. Denies: tearing Cardiology: Denies: see HPI, chest pain Gastrointestinal/Abdominal: States: see HPI. Denies: abdominal pain, diarrhea, nausea Musculoskeletal: Denies: back pain, gout, muscle pain, muscle stiffness Skin: States: change in hair/nails. Denies: change in color, dryness, lesions Neurological: Denies: anxiety, depressed, emotional problems, numbness Endocrine: Denies: excessive sweating, flushing, intolerance to cold, intolerance to heat Hematologic/Lymphatic: Denies: anemia, easy bruising Past Medical History (General) - Patient Medical History Hx Seizures: No Hx Stroke: No Hx Dementia: No Hx Asthma: No Hx of COPD: No Hx Cardiac Disorders: No Hx Congestive Heart Failure: No Hx Pacemaker: No Hx Hypertension: Yes Hx Thyroid Disease: No Hx Diabetes: No Hx Gastroesophageal Reflux: No Hx Renal Disease: No Hx Cancer: Yes - rec'd chemotherapy. Hx of HIV: No Hx MRSA: No - Vaccination History Hx Tetanus, Diphtheria Vaccination: Yes Hx Influenza Vaccination: Yes Hx Pneumococcal Vaccination: Yes Immunizations Up to Date: Yes - Social History Hx Tobacco Use: No Hx Alcohol Use: Yes - occ wine Hx Substance Use: No Hx Substance Use Treatment: No Hx Depression: No Hx Physical Abuse: No Hx Emotional Abuse: No - Female History Patient is a Female of Child Bearing Age (10 -59 yrs old): No Family Medical History - Family History Mother Family History: Unknown Physical Exam - Physical Exam General Appearance: Alert, Well Developed, Well Groomed Eye Exam: bilateral normal ENT Exam: normal ENT inspection, hearing grossly normal, TMs normal, pharynx normal, nasal congestion Neck: non-tender, full range of motion, supple, normal inspection Respiratory: chest non-tender, lungs clear, normal breath sounds, no respiratory distress Cardiovascular/Chest: normal peripheral pulses, regular rate, rhythm, no edema Peripheral Pulses: radial,right: 2+, radial,left: 2+ Gastrointestinal/Abdominal: normal bowel sounds, non tender, soft, no organomegaly, no pulsatile mass Back Exam: normal inspection, no CVA tenderness, no vertebral tenderness Extremities Exam: non-tender, normal range of motion Mental Status: alert, oriented x 3, 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 03/08/20 13:48 Patient states that she would like to get an MRI 03/08/20 14:43 Patient continues to be stable throughout her emergency stay. Discussed all results and findings with the patient including MRI results. Discussed the need for outpatient follow-up with neurology she verbalized understanding - EKG/XRAY/CT EKG: Sinus - Bradycardia with a heart rate of 56, SC interval 236 QRS [address] segment elevation. Comments: Brain w/oContrast CLINICAL HISTORY: blurry vision COMPARISON: CT Octob Xray Comments: Chest x-ray, no acute pathology CT: EXAM DESCRIPTION: Head CLINICAL HISTORY: blurry vision now resolved COM CT Ordered: Yes - EXAM DESCRIPTION: Head CLINICAL HISTORY: blurry vision now resolved COM Stroke Information - Onset of Symptoms Stroke Onset of Symptoms Date: 03/07/20 Stroke Onset of Symptoms Time: 21:30 Departure - Departure Clinical Impression: Dizziness, Blurry vision Disposition: Discharge to Home or Self Care Condition: Good Departure Forms: ED Discharge - Pt. Copy, Patient Portal Self Enrollment Referrals: LIZBETH MACKAY [Referring] - 1-2 Days Kike Fontana III, MD [Primary Care Provider] - 1-2 Days Slick Duffy DO [Referring] - 1-2 Days HENRY DIETZ JR [Referring] - 1-2 Days Home Medications: Ambulatory Orders Nitrofurantoin Monohyd Macro [Nitrofurantoin Monohydrat] 50 mg PO DAILY 10/13/13 Clonazepam 1 mg PO HS 03/16/16 Eszopiclone [Lunesta] 2 mg PO HS PRN 03/16/16 Pravastatin Sodium [Pravachol] 20 mg PO DAILY 03/16/16 QUEtiapine FUMARATE [Seroquel] 50 mg PO HS 03/16/16 Alprazolam [Xanax] 1 mg PO PRN 01/18/20 Buspirone HCl [Buspirone Hydrochloride] 5 mg PO DAILY 01/18/20 Carvedilol 6.25 mg PO BID 01/18/20 Memantine HCl [Memantine Hydrochloride E] 21 mg PO DAILY 01/18/20 Pantoprazole Suspension [Protonix Suspension] 40 mg PO BID 01/18/20 Additional Instructions: Please follow-up with your primary care physician in 1 to 2 days. Follow-up with neurology. Presents emergency department as needed.
--- NOTE | 2020-03-08 14:26 | MRI ---
EXAM DESCRIPTION: Brain w/oContrast CLINICAL HISTORY: blurry vision COMPARISON: CT March 08, 2020. MRI October 03, 2007 TECHNIQUE: Multiplanar, multi sequence MR images of the head are obtained without IV gadolinium contrast using standard imaging protocol. FINDINGS: The midline structures are not displaced. Sulci are age appropriate. Decreased CSF signal over the frontal lobes bilaterally similar to previous. The lateral, third, and fourth ventricles are normal in size, shape, and anatomic positioning. Normal go-white differentiation is seen. Normal flow voids are seen in the major intracranial vessels including the dural venous sinuses. There is no evidence of mass, mass effect, hydrocephalus, or acute intracranial hemorrhage. No abnormal extra-axial fluid collections are seen. Mild increased FLAIR/T2 signal in the periventricular white matter and white matter of the centrum semiovale stable from previous no diffusion weighted signal abnormalities are seen. Focal linear areas of increased T2 signal in the mid to inferior cerebellum right greater than left are again seen. Gradient echo images show no abnormal signal. The pituitary is unremarkable. Visualized paranasal sinuses are unremarkable. The visualized orbits and mastoid air cells are unremarkable. IMPRESSION: Age-appropriate atrophy with mild old small vessel ischemic type changes are seen. 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 No MRI evidence of acute intracranial ischemia, hemorrhage, mass, or mass effect. Electronically signed by: Pb Islas MD 03/08/2020 2:24 PM CDT
[2020-03-08 15:04] VITALS: BP 175/95; O2SAT 100
== END 2020-03-08 15:05 | disposition home or self-care (01) ==
LOC: ER 11:11
DX: R42 Dizziness and giddiness (principal); H53.8 Other visual disturbances; R00.1 Bradycardia, unspecified; I10 Essential (primary) hypertension; Z85.9 Personal history of malignant neoplasm, unspecified; Z92.21 Personal history of antineoplastic chemotherapy; Z79.899 Other long term (current) drug therapy
CPT/HCPCS: 36415; 36416; 70450; 70551; 71045; 80053; 82550; 82553; 82948; 84484; 85025; 85610; 85730; 93005; J7040

== ENCOUNTER → 2020-03-16 | Outpatient (CLI) | payer MEDICARE, OTHER | LOC: GMAL 13:24 | PROVIDERS: ATTEND Family Medicine | DX: N30.00 Acute cystitis without hematuria (principal) ==

== ENCOUNTER 2020-05-04 16:53 | Emergency (ER) | payer MEDICARE, OTHER ==
--- NOTE | 2020-05-04 17:45 | RAD ---
EXAM: XR Pelvis, 1 View CLINICAL HISTORY: fall with mild pain TECHNIQUE: Frontal view of the pelvis. COMPARISON: No relevant prior studies available. FINDINGS: Limitations: None. Bones/joints: No acute change noted. Soft tissues: No abnormality noted. No concerning radiopaque foreign body noted. Gastrointestinal tract: No abnormality noted. IMPRESSION: No pelvic fracture noted. Electronically signed by: Zoya Bejarano MD 05/04/2020 5:43 PM MD PEDIATRIC ALLERGIST
--- NOTE | 2020-05-04 17:46 | RAD ---
EXAM: XR Lumbosacral Spine, 3 Views CLINICAL HISTORY: fall with mild pain TECHNIQUE: Frontal, lateral and spot lateral views obtained. COMPARISON: No relevant prior studies available. FINDINGS: Limitations: None. Vertebrae: There is mild convex left bowing of the spine with accentuated lordosis at the lumbosacral junction and pelvic rotation. There is diffuse mild to moderate facet hypertrophic change. Minimal spondylosis present at all levels. Vertebral body heights maintained. Sacrum/coccyx: No acute change noted. Other bones/joints: Visualized portions appear normal. Disc spaces: There is widening of the anterior disc space at L5-S1 and L4-L5. There is narrowing of the L3-L4 disc space. Soft tissues: No abnormality noted. Gastrointestinal tract: Visualized portions appear normal. IMPRESSION: Chronic changes as above. No acute disease. Electronically signed by: Zoya Bejarano MD 05/04/2020 5:45 PM [facility]
[2020-05-04] MEDS ORDERED: SULFA/TRIMETH 800/160 (DS) TAB 1 EA TAB PO ONE (17:57)
--- NOTE | 2020-05-04 18:00 | ED.PDOC ---
History of Present Illness - General Chief Complaint: Trauma Stated Complaint: fall, 2.5 cm laceration, lower left back pain Time Seen by Provider: 05/04/20 16:55 Source: patient Exam Limitations: no limitations - History of Present Illness Initial Comments: The patient is a 80-year-old female presented to the emergency room secondary to having tripped and fallen about 12 hours prior to arrival. She did sustain a 1 inch laceration to the posterior left scalp. The fall was accidental and there was no dizziness and no loss of consciousness. No altered mental state or significant headache since then. She is not taking blood thinners. There is no crepitus of the scalp. There is no depression of the scalp. No CSF of the nares or ear canals. No evidence of any basilar skull fracture. No neck pain. She has mild hip and left low back discomfort. She had ambulatory since. Timing/Duration: other - 12 hours Severity: mild Improving Factors: nothing Worsening Factors: nothing Associated Symptoms: denies symptoms Allergies/Adverse Reactions: Allergies NO KNOWN ALLERGY Allergy (Verified 03/08/20 11:57) Home Medications: Ambulatory Orders Nitrofurantoin Monohyd Macro [Nitrofurantoin Monohydrat] 50 mg PO DAILY 10/13/13 Clonazepam 1 mg PO HS 03/16/16 Eszopiclone [Lunesta] 2 mg PO HS PRN 03/16/16 Pravastatin Sodium [Pravachol] 20 mg PO DAILY 03/16/16 QUEtiapine FUMARATE [Seroquel] 50 mg PO HS 03/16/16 Alprazolam [Xanax] 1 mg PO PRN 01/18/20 Buspirone HCl [Buspirone Hydrochloride] 5 mg PO DAILY 01/18/20 Carvedilol 6.25 mg PO BID 01/18/20 Memantine HCl [Memantine Hydrochloride E] 21 mg PO DAILY 01/18/20 Pantoprazole Suspension [Protonix Suspension] 40 mg PO BID 01/18/20 Sulfa/Trimeth 800/160 (Ds) Tab [Bactrim DS Tab] 1 ea PO BID #10 tab 05/04/20 Tramadol HCl 50 mg PO Q8HR PRN #10 tab 05/04/20 Review of Systems - Review of Systems Constitutional: States: no symptoms reported EENTM: States: no symptoms reported Respiratory: States: no symptoms reported Cardiology: States: no symptoms reported Gastrointestinal/Abdominal: States: no symptoms reported Genitourinary: States: no symptoms reported Musculoskeletal: States: see HPI Skin: States: see HPI Neurological: States: no symptoms reported Endocrine: States: no symptoms reported All other Systems: No Change from Baseline Past Medical History (General) - Patient Medical History Hx Seizures: No Hx Stroke: No Hx Dementia: No Hx Asthma: No Hx of COPD: No Hx Cardiac Disorders: No Hx Congestive Heart Failure: No Hx Pacemaker: No Hx Hypertension: Yes Hx Thyroid Disease: No Hx Diabetes: No Hx Gastroesophageal Reflux: No Hx Renal Disease: No Hx Cancer: Yes - rec'd chemotherapy. Hx of HIV: No Hx MRSA: No Surgical History: appendectomy, tonsillectomy, Hysterectomy - Vaccination History Hx Tetanus, Diphtheria Vaccination: Yes Hx Influenza Vaccination: Yes Hx Pneumococcal Vaccination: Yes - Social History Hx Tobacco Use: No Hx Alcohol Use: Yes - occ wine Hx Substance Use: No Hx Substance Use Treatment: No Hx Depression: No Hx Physical Abuse: No Hx Emotional Abuse: No Family Medical History - Family History Mother Family History: Unknown Physical Exam - Physical Exam General Appearance: Alert, Comfortable, No apparent distress Eye Exam: bilateral normal Ears, Nose, Throat: hearing grossly normal, normal pharynx Neck: non-tender, full range of motion, supple Respiratory: no respiratory distress, no accessory muscle use Cardiovascular/Chest: normal peripheral pulses, no edema Peripheral Pulses: radial,right: 2+, radial,left: 2+ Rectal Exam: deferred Back Exam: CVA tenderness (L) - Left lower lateral back discomfort to palpation. No crepitus. No bruising. No laceration. No spinous process tenderness to palpation or step-off. Extremity: normal range of motion, no pedal edema, normal capillary refill, other - Mild left hip discomfort with movement but she has been ambulatory on it all day. 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 The wound was repaired with three simple sutures of 3-0 Prolene. The patient was given a dose of Bactrim and will continue that for the next 5 days to prevent infection. Sutures can come out in about 7 days. No evidence of any fracture or dislocation on the x-rays. She does need to ambulate carefully to prevent more falls. She will be written for a short prescription of tramadol for as needed use. ER warnings are given. Keep well-hydrated. Keep routine follow-up with primary care doctor. Head CT not warranted at this time based on clinical exam and symptomatology as well as duration of time since the fall. Obviously if mental status or pain levels are worsening, then a head CT would be warranted. No neck pain. Risk and benefits of repair were explained and patient agreed to proceed. Wound was cleaned with hydrogen peroxide. Lidocaine without epinephrine x3 cc was used as a local anesthetic. Three simple sutures of 3-0 Prolene were used for reapproximation. Patient tolerated this well. Estimated blood loss here is less than 2 cc. Sutures need to come out in 7 days. brice rodriguez [id number] 05/04/20 18:03 05/04/20 18:04 pmpjer consulted - Results/Orders Results/Orders: X-ray showed chronic changes of the lumbar spine and pelvis. No fracture or dislocation. EKG shows normal sinus rhythm at 66 bpm. Normal axis. Normal R wave progression. No ST segment or T wave changes indicative of acute ischemia. Normal QT interval. Departure - Departure Clinical Impression: Fall at home Qualifiers: Encounter type: initial encounter Qualified Code(s): W19.XXXA - Unspecified fall, initial encounter; Y92.009 - Unspecified place in unspecified non- institutional (private) residence as the place of occurrence of the external cause Scalp laceration Qualifiers: Encounter type: initial encounter Qualified Code(s): S01.01XA - Laceration without foreign body of scalp, initial encounter Disposition: Discharge to Home or Self Care Condition: Fair Departure Forms: ED Discharge - Pt. Copy, Patient Portal Self Enrollment Diet: regular diet Activity: increase activity as tolerated Referrals: Kike Fontana III, MD [Primary Care Provider] - 1-2 Weeks Prescriptions: Tramadol HCl 50 mg PO Q8HR PRN #10 tab PRN Reason: Moderate Pain Sulfa/Trimeth 800/160 (Ds) Tab [Bactrim DS Tab] 1 ea PO BID #10 tab Home Medications: Ambulatory Orders Nitrofurantoin Monohyd Macro [Nitrofurantoin Monohydrat] 50 mg PO DAILY 10/13/13 Clonazepam 1 mg PO HS 03/16/16 Eszopiclone [Lunesta] 2 mg PO HS PRN 03/16/16 Pravastatin Sodium [Pravachol] 20 mg PO DAILY 03/16/16 QUEtiapine FUMARATE [Seroquel] 50 mg PO HS 03/16/16 Alprazolam [Xanax] 1 mg PO PRN 01/18/20 Buspirone HCl [Buspirone Hydrochloride] 5 mg PO DAILY 01/18/20 Carvedilol 6.25 mg PO BID 01/18/20 Memantine HCl [Memantine Hydrochloride E] 21 mg PO DAILY 01/18/20 Pantoprazole Suspension [Protonix Suspension] 40 mg PO BID 01/18/20 Sulfa/Trimeth 800/160 (Ds) Tab [Bactrim DS Tab] 1 ea PO BID #10 tab 05/04/20 Tramadol HCl 50 mg PO Q8HR PRN #10 tab 05/04/20 Additional Instructions: The patient is an 80-year-old female presented to the emergency room after accidentally having tripped about 12 hours ago and sustained a 1 inch laceration to the posterior scalp. The wound was repaired with three simple sutures of 3-0 Prolene. The patient was given a dose of Bactrim and will continue that for the next 5 days to prevent infection. Sutures can come out in about 7 days. No evidence of any fracture or dislocation on the x-rays. She does need to ambulate carefully to prevent more falls. She will be written for a short prescription of tramadol for as needed use. ER warnings are given. Keep well-hydrated. Keep routine follow-up with primary care doctor. If any symptoms are worsening then the patient does need a repeat evaluation.
[2020-05-04 18:22] VITALS: BP 182/82; TEMP 96.5; O2SAT 93
== END 2020-05-04 18:18 | disposition home or self-care (01) ==
LOC: ER 16:53
DX: S01.01XA Laceration without foreign body of scalp, initial encounter (principal); M54.5 Low back pain; M25.552 Pain in left hip; I10 Essential (primary) hypertension; Z85.9 Personal history of malignant neoplasm, unspecified; Z92.21 Personal history of antineoplastic chemotherapy; Z79.899 Other long term (current) drug therapy; W01.0XXA Fall on same level from slipping, tripping and stumbling without subsequent striking against object, initial encounter; Y92.009 Unspecified place in unspecified non-institutional (private) residence as the place of occurrence of the external cause

== ENCOUNTER 2020-05-05 20:44 | Emergency (ER) | payer MEDICARE, OTHER ==
[2020-05-05] MEDS ORDERED: KETOROLAC TROMETHAMINE INJ 30 MG/ML VIAL IM ONE (21:13)
[2020-05-05] MEDS ORDERED: CYCLOBENZAPRINE HCL 10 MG TAB PO ONE (21:13)
[2020-05-05] MEDS ORDERED: ACETAMINOPHEN 500 MG TAB PO ONE (21:14)
--- NOTE | 2020-05-05 21:19 | ED.PDOC ---
History of Present Illness - General Chief Complaint: Back Pain or Injury Stated Complaint: back pain Time Seen by Provider: 05/05/20 21:11 Source: patient - History of Present Illness Initial Comments: PATIENT FELL YESTERDAY AND WAS SEEN IN THE ER, HAD PLAIN FILMS DONE, NO FRACTURES SEEN, SHE HIT HER LEFT LOWER BACK AND IS COMPLAINING OF PAIN IN THE [id number], L1-L2 AREA. PT REPORTS THAT HER TRAMADOL DOES NOT SEEM TO BE HELPING HER PAIN AND SHE FEELS SHE IS HAVING SOME PRURITIS FROM IT. Allergies/Adverse Reactions: Allergies NO KNOWN ALLERGY Allergy (Verified 03/08/20 11:57) Home Medications: Ambulatory Orders Nitrofurantoin Monohyd Macro [Nitrofurantoin Monohydrat] 50 mg PO DAILY 10/13/13 Clonazepam 1 mg PO HS 03/16/16 Eszopiclone [Lunesta] 2 mg PO HS PRN 03/16/16 Pravastatin Sodium [Pravachol] 20 mg PO DAILY 03/16/16 QUEtiapine FUMARATE [Seroquel] 50 mg PO HS 03/16/16 Alprazolam [Xanax] 1 mg PO PRN 01/18/20 Buspirone HCl [Buspirone Hydrochloride] 5 mg PO DAILY 01/18/20 Carvedilol 6.25 mg PO BID 01/18/20 Memantine HCl [Memantine Hydrochloride E] 21 mg PO DAILY 01/18/20 Pantoprazole Suspension [Protonix Suspension] 40 mg PO BID 01/18/20 Sulfa/Trimeth 800/160 (Ds) Tab [Bactrim DS Tab] 1 ea PO BID #10 tab 05/04/20 Tramadol HCl 50 mg PO Q8HR PRN #10 tab 05/04/20 Cyclobenzaprine HCl [Flexeril] 5 mg PO Q6H PRN #20 tab 05/05/20 Meloxicam 15 mg PO DAILY #14 tab 05/05/20 Review of Systems - Review of Systems Constitutional: States: no symptoms reported Respiratory: States: no symptoms reported Cardiology: States: no symptoms reported Gastrointestinal/Abdominal: States: no symptoms reported Genitourinary: States: no symptoms reported Past Medical History (General) - Patient Medical History Hx Seizures: No Hx Stroke: No Hx Dementia: No Hx Asthma: No Hx of COPD: No Hx Cardiac Disorders: No Hx Congestive Heart Failure: No Hx Pacemaker: No Hx Hypertension: Yes Hx Thyroid Disease: No Hx Diabetes: No Hx Gastroesophageal Reflux: No Hx Renal Disease: No Hx Cancer: Yes - rec'd chemotherapy. Hx of HIV: No Hx MRSA: No Surgical History: appendectomy, cancer surgery, cholecystectomy, Hysterectomy - Vaccination History Hx Tetanus, Diphtheria Vaccination: Yes Hx Influenza Vaccination: Yes Hx Pneumococcal Vaccination: Yes - Social History Hx Tobacco Use: No Hx Alcohol Use: Yes - occ wine Hx Substance Use: No Hx Substance Use Treatment: No Hx Depression: No Hx Physical Abuse: No Hx Emotional Abuse: No Family Medical History - Family History Mother Family History: Unknown Physical Exam - Physical Exam General Appearance: Alert, Comfortable, No apparent distress Neck Exam: non-tender, full range of motion, normal alignment, normal inspection Back Exam: normal inspection, muscle spasm - PARASPINOUS MUSCLES IN THE LEFT LUMBAR REGION, vertebral tenderness - POSSIBLE LUMBAR TRANSVERSE PROCESS TENDERNESS ON THE LEFT Neurologic: no motor/sensory deficits, alert, normal mood/affect, oriented x 3 Departure - Departure Clinical Impression: Lumbar contusion Qualifiers: Encounter type: subsequent encounter Qualified Code(s): S30.0XXD - Contusion of lower back and pelvis, subsequent encounter Time of Disposition: 22:02 Disposition: Discharge to Home or Self Care Condition: Fair Departure Forms: ED Discharge - Pt. Copy, Patient Portal Self Enrollment Instructions: DI for Low Back Pain Activity: walking as tolerated Referrals: Kike Fontana III, MD [Primary Care Provider] - 1-2 Weeks Prescriptions: Cyclobenzaprine HCl [Flexeril] 5 mg PO Q6H PRN #20 tab PRN Reason: BACK Muscle Spasms Meloxicam 15 mg PO DAILY #14 tab Home Medications: Ambulatory Orders Nitrofurantoin Monohyd Macro [Nitrofurantoin Monohydrat] 50 mg PO DAILY 10/13/13 Clonazepam 1 mg PO HS 03/16/16 Eszopiclone [Lunesta] 2 mg PO HS PRN 03/16/16 Pravastatin Sodium [Pravachol] 20 mg PO DAILY 03/16/16 QUEtiapine FUMARATE [Seroquel] 50 mg PO HS 03/16/16 Alprazolam [Xanax] 1 mg PO PRN 01/18/20 Buspirone HCl [Buspirone Hydrochloride] 5 mg PO DAILY 01/18/20 Carvedilol 6.25 mg PO BID 01/18/20 Memantine HCl [Memantine Hydrochloride E] 21 mg PO DAILY 01/18/20 Pantoprazole Suspension [Protonix Suspension] 40 mg PO BID 01/18/20 Sulfa/Trimeth 800/160 (Ds) Tab [Bactrim DS Tab] 1 ea PO BID #10 tab 05/04/20 Tramadol HCl 50 mg PO Q8HR PRN #10 tab 05/04/20 Cyclobenzaprine HCl [Flexeril] 5 mg PO Q6H PRN #20 tab 05/05/20 Meloxicam 15 mg PO DAILY #14 tab 05/05/20 Additional Instructions: REASSESSMENT BY YOUR PCP THIS WEEK. RETURN TO ER IF NEW OR WORSENING SYMPTOMS. TAKE 650 MG OF TYLENOL WITH THE ULTRAM(TRAMADOL) TO INCREASE EFFECTIVENESS. MAY TAKE 1/2 OF A BENADRYL TABLET FOR THE ITCHING IF NEEDED.
--- NOTE | 2020-05-05 21:58 | CT ---
EXAM DESCRIPTION: Lumbar Spine CLINICAL HISTORY: TRAUMA COMPARISON: 03/16/2016. TECHNIQUE: Contiguous axial images of lumbar spine were obtained followed by reconstruction images. DLP: 202.99 mGy-cm. This exam was performed according to our departmental dose-optimization protocol, which includes automated exposure control, adjustment of the mA and/or kV according to patient size and/or use of iterative reconstruction technique. FINDINGS: There is anatomic alignment of the lumbar spine. Vertebral body height is preserved without evidence of acute fracture or spondylolisthesis. No retroperitoneal or paraspinal abnormality is seen. There is no atherosclerotic disease of the aorta. Visualized portions of the sacral alae and SI joints demonstrate to be within normal limits. L1-2: Unremarkable L2-3: Unremarkable L3-4: Unremarkable L4-5: Small posterior ossified complex/broad-based bulge with no compromise of the spinal canal is/or neural foramina similar to prior study. L5-S1: There is minimal posterior facet hypertrophy at L5/S1 with no complex of the spinal canal IMPRESSION: NO ACUTE FRACTURE OR SUBLUXATION OF THE LUMBAR SPINE. NO SIGNIFICANT INTERVAL CHANGE IN COMPARISON WITH 03/16/2016. Electronically signed by: Kike Snowden MD 05/05/2020 9:56 PM [facility]
[2020-05-05 22:08] VITALS: BP 127/72
[2020-05-05 22:13] VITALS: TEMP 98.2; O2SAT 92
== END 2020-05-05 22:13 | disposition home or self-care (01) ==
LOC: ER 20:44
DX: S30.0XXD Contusion of lower back and pelvis, subsequent encounter (principal); I10 Essential (primary) hypertension; Z85.9 Personal history of malignant neoplasm, unspecified; Z92.21 Personal history of antineoplastic chemotherapy; Z79.899 Other long term (current) drug therapy; W19.XXXD Unspecified fall, subsequent encounter
CPT/HCPCS: 72131; J1885

== ENCOUNTER 2020-05-09 15:40 | Inpatient (IN) | payer MEDICARE, OTHER ==
--- NOTE | 2020-05-09 15:54 | HP ---
SUPERVISING PHYSICIAN: Gabe Posadas MD CHIEF COMPLAINT: Hypoxia and altered mental status. HISTORY OF PRESENT ILLNESS: This is a 80 year-old female who is a patient of Dr. Fontana. Apparently, she fell last and ended up going to the Emergency Room after that. She was not found to have any fractures. She did have a laceration in the occipital area which ended up being sutured. She then went home. The next day she went to the Emergency Room after that admission due to pain in her left lower back. She was basically sent home after that. She went to the Emergency Room yesterday due to the fact that she had a fever at home. She was found to have oxygen saturation in the 70s at the outpatient Covid check point. Covid was negative but due to hypoxia, she was sent to the Emergency Room here. In the Emergency Room, oxygen saturation was 92% on room air with no complaints of shortness of breath or cough. She did have a chest x- ray which was concerning for a left-sided perihilar infiltrate. She was given a prescription for Augmentin and was sent home. Apparently, when she got home she had more altered mental status and oxygen saturation were in the 80s again. Dr. Fontana, her primary care physician, was contacted and he subsequently called me for direct admission. The patient has arrived. At time of the examination she is alert, she is conversive with no slurred speech but she does forget what she wants to say. Her caregiver at bedside states that is not normal for her. PAST MEDICAL HISTORY: 1. Hyperlipidemia. 2. Diverticulosis. 3. C-diff in the past. 4. Frequent urinary tract infections. 5. Osteopenia. 6. Migraine headaches. 7. Breast cancer twice. 8. Depression. 9. Macular degeneration. PAST SURGICAL HISTORY: 1. Dilatation and curettage. 2. Hysterectomy with bilateral salpingo-oophorectomy. 3 Tonsillectomy and adenoidectomy. 4. Subclavian port placement. 5. Facelift. 6. Bilateral mastectomies. 7. Corneal transplant, left. 8. Colonoscopies. 9. Stress test which pretty much came out normal. CURRENT MEDICATIONS: See medication reconciliation record to be verified on the computer. ALLERGIES: No known drug allergies. FAMILY HISTORY: Her father at age 65 of [place]. Mother of Alzheimer's. Two brothers, one with coronary artery disease, one with Alzheimer's. SOCIAL HISTORY: Apparently, her recently left but still status I believe. She socially drinks alcohol, quit smoking in 1979, no illicit drugs. REVIEW OF SYSTEMS: CONSTITUTIONAL: Positive for fever and chills and malaise. . HEENT: No nasal drainage, no sore throat. RESPIRATORY: No significant cough or shortness of breath, although she did cough on deep inspiration for me. CARDIOVASCULAR: No chest pain, palpitations or peripheral edema. GASTROINTESTINAL: No nausea, vomiting, diarrhea, constipation or abdominal pain. GENITOURINARY: No dysuria, frequency or flank pain. ENDOCRINE: No polydipsia, polyuria or polyphagia. No heat or cold intolerance. SKIN: No rashes, lesions, she does have the occipital sutures still in place. NEUROLOGIC: No syncope, paresthesias or seizures. PHYSICAL EXAMINATION: VITAL SIGNS: Blood pressure 133/76, heart rate 62, respiratory rate 20, temperature 98.1, oxygen saturation 95%. GENERAL: The patient is an 80 year-old female in no active distress. NEUROLOGIC: The patient is alert but a little bit confused. No focal deficits. CHEST: Lungs with a little bit of inspiratory wheeze laterally on the left lower lung field, otherwise no rhonchi or rales. CARDIOVASCULAR: Regular rate and rhythm, normal S1, S2. ABDOMEN: Soft, positive bowel sounds. EXTREMITIES: Lower extremities with no edema, 2+ pulses, capillary less than 3 seconds. ASSESSMENT: 1. Perihilar community acquired pneumonia with apparent failed outpatient therapy. 2. Altered mental status which is likely metabolic encephalopathy. 3. Recent fall resulting in occipital laceration with no other acute findings on workup. 4. History of frequent urinary tract infections. PLAN: At this time, the patient will be admitted for failed outpatient treatment of community acquired pneumonia. Will place her on empiric antibiotics with Rocephin and azithromycin. Will place her on bronchial hygiene along with incentive spirometry. She will have scheduled Duoneb therapies. We did a UA with urine culture as well due to the confusion, to rule out a urinary tract infection. I will go ahead and do at CT scan of her chest as well as her head to rule out any other pathology. I am going to repeat Covid testing on her along with influenza testing and strep testing due to the fever. Once her medications are verified in the computer, we will resume those as well. #[id number] [facility]
[2020-05-09] MEDS ORDERED: SODIUM CHLORIDE 0.9% (FLUSH) 10 ML SYG IV PRN (15:55)
[2020-05-09] MEDS ORDERED: ENOXAPARIN SODIUM 40 MG/0.4 ML SYG SUBCU SCH (16:00)
[2020-05-09] MEDS: IPRATROPIUM/ALBUTEROL 3 ML VIAL INH SCH ×2 (16:55→23:15)
[2020-05-09] MEDS: cefTRIAXone SODIUM 1 GM in SODIUM CHL 0.9% 50ML MIN-BAG+ 50 ML IVPB SCH (17:17)
[2020-05-09] MEDS: AZITHROMYCIN IV 500 MG in SODIUM CHLORIDE 0.9% 250ML 250 ML IVPB SCH (17:22)
[2020-05-09] MEDS: IV SET AND CAP CHANGE INJ INJ SCH (17:22)
[2020-05-09] MEDS ORDERED: DEXTROSE 5% 1000ML 1,000 ML IVS ONE (20:37)
[2020-05-09] MEDS ORDERED: SODIUM BICARBONATE VIAL 50 MEQ/50 ML VIAL ONE (20:37)
[2020-05-09] MEDS: SODIUM BICARBONATE SYRINGE 100 MEQ in DEXTROSE 5% 1000ML 1,000 ML IV PRN (20:45)
--- NOTE | 2020-05-09 21:56 | CT ---
EXAM: CT CHEST WITHOUT IV CONTRAST CLINICAL INDICATION: Hypoxia COMPARISON: There is no previous study for comparison. TECHNIQUE: The CT scan was done using contiguous axial 5 mm noncontrast sections through the chest. This exam was performed according to our departmental dose-optimization program, which includes automated exposure control, adjustment of the mA and/or kV according to patient size and/or use of iterative reconstruction technique. FINDINGS: An aberrant right subclavian artery is noted, anatomic variation. There are no enlarged mediastinal or hilar lymph nodes. Trace bilateral pleural effusions are identified. Coronary artery calcifications are noted. The visualized portions of the upper abdominal structures are unremarkable. There are mild multifocal infiltrates and groundglass opacities in the bilateral upper lobes, lingula, and bilateral lower lobes as well as the right middle lobe. There is no pneumothorax. IMPRESSION: 1. Multifocal bilateral pulmonary infiltrates suspicious for pneumonia. 2. Trace bilateral pleural effusions. Electronically signed by: Zhao Mejias MD 05/09/2020 7:19 PM [facility]
--- NOTE | 2020-05-09 22:01 | CT ---
EXAM: CT Head Without Intravenous Contrast CLINICAL HISTORY: The patient is 80 years old and is Female; ALTERED MENTAL STATUS TECHNIQUE: Axial computed tomography images of the head/brain without intravenous contrast. Sagittal and coronal reformatted images were created and reviewed. This CT exam was performed using one or more of the following dose reduction techniques: automated exposure control, adjustment of the mA and/or kV according to patient size, and/or use of iterative reconstruction technique. COMPARISON: CT head March 08, 2020. FINDINGS: Brain: Unremarkable. No hemorrhage. No significant white matter disease. No edema. Ventricles: Unremarkable. No ventriculomegaly. Bones/joints: Unremarkable. No acute skull fracture. Soft tissues: Unremarkable. Sinuses: Unremarkable as visualized. No acute sinusitis. Mastoid air cells: No significant mastoid fluid. IMPRESSION: No acute intracranial findings. No hemorrhage. Electronically signed by: Kerry Yee MD 05/09/2020 7:20 PM [facility]
[2020-05-09] MEDS ORDERED: IPRATROPIUM/ALBUTEROL 3 ML VIAL NEB ONE (23:15)
[2020-05-10] MEDS ORDERED: CYCLOBENZAPRINE HCL 5 MG TAB PO PRN (06:52)
[2020-05-10] MEDS ORDERED: POLYETHY-PROP GLYCOL OPHTH SOL 1 DROP BOTH_EYES PRN (06:52)
[2020-05-10] MEDS ORDERED: ESZOPICLONE 2 MG PO PRN (06:52)
[2020-05-10] MEDS ORDERED: NITROFURANTOIN 50 MG CAP PO SCH (07:30)
[2020-05-10] MEDS ORDERED: CARVEDILOL 12.5 MG TAB ONE (07:52)
[2020-05-10] MEDS: ESTROGENS CONJUGATED 0.3 MG PO SCH (08:02)
[2020-05-10] MEDS: busPIRone HCL 5 MG TAB PO SCH (08:07)
[2020-05-10] MEDS: GABAPENTIN 300 MG CAP PO SCH ×2 (08:07→21:55)
[2020-05-10] MEDS ORDERED: PANTOPRAZOLE SODIUM TAB 40 MG PO SCH (09:00)
[2020-05-10] MEDS: IPRATROPIUM/ALBUTEROL 3 ML VIAL INH SCH ×4 (09:00→21:00)
[2020-05-10] MEDS ORDERED: NON-FORMULARY MEDICATION 1 EA MIS (Carvedilol [Carvedilol] 6.25 MG) PO SCH (09:00)
[2020-05-10] MEDS ORDERED: NITROFURANTOIN 50 MG CAP PO ONE (09:53)
[2020-05-10] MEDS: METRONIDAZOLE TOP SCH ×2 (10:49→21:57)
--- NOTE | 2020-05-10 11:31 | US ---
EXAM DESCRIPTION: Renal (accession [id number]), Renal Arteries (accession [id number]): Ultrasound. CLINICAL HISTORY: CHATO COMPARISON: Two-dimensional ultrasound evaluation of the bilateral kidneys on the same visit. TECHNIQUE: Transcutaneous scanning: Grayscale mode. Doppler peak systolic and end-diastolic velocities/measurements of the abdominal aorta, renal arteries, intra renal arteries, and renal veins. Technically difficult study for Doppler. Only the mid and distal renal arteries were visualized. FINDINGS: The right kidney measures 8.1 x 4.1 x 4.0 cm: volume 70 ml. Increased cortical echogenicity but less than the liver; 8.3 mm cortical thickness. No hydronephrosis, no large calcifications. Smooth contour of the kidney with no perinephric fluid. Proximal ureter not visualized. The left kidney measures 9.0 x 5.1 x 4.2 cm: volume 100.5 ml. Normal cortical echogenicity; 11 mm cortical thickness. No hydronephrosis or large calcifications. Smooth contour of the kidney with no perinephric fluid. Proximal ureter not visualized. Distal ureters not visualized bilaterally. Bilateral ureteral jets seen by color Doppler in the bladder. Urinary bladder was visualized. Volume 361.8 mL. No voiding. Aorta diameter (cm): Proximal: 1.5 Mid: 1.4 Distal: 1.5 NIKOLAS- Right: Not measured Left: Not measured. PSV (cm/sec): Aorta: 75 Right renal artery: 82 (distal) Left renal artery: 84 (mid) EDV (cm/sec): Right renal artery: 17 Left renal artery: 15 Renal veins: Visualized IVC: Visualized Intrarenal RI's: Proximal segmental Right: 1.0 Left: 0.62. Mid segmental Right: 1.0 Left: 1.0. Distal segmental Right: 0.9 Left: 0.7 Renal Aortic Ratio: Right RAR = RRA PSV/Aortic PSV = 82 /75= 1.1. Left RAR = LRA PSV/Aortic PSV = 84/75 = 1.1. End Diastolic Ratio: Right EDR = RRA EDV/RRA PSV = 17/82 = 0.21. Left EDR = LRA EDV/LRA PSV = 15/84= 0.18. Other: None. IMPRESSION: 1. Bilateral kidneys show minimal increase in echogenicity of the cortex and cortical thinning. No echogenic stones or hydronephrosis. Urinary bladder visualized with bilateral intra vesicular ureteral jets seen by color Doppler 2. Bilateral renal aortic ratios indicating no evidence of significant stenosis. Proximal ureters cannot be evaluated. 3. Decreased End-diastolic ratios and increased intrarenal resistive indices of the bilateral kidneys indicating significant bilateral renovascular parenchymal disease. Electronically signed by: Felton Monroe MD 05/10/2020 11:29 AM [facility]
--- NOTE | 2020-05-10 12:08 | RAD ---
XR CHEST 2 VIEWS HISTORY: 80 years Female cap COMPARISON: May 08, 2020. TECHNIQUE: PA and lateral views of the chest. FINDINGS: Lungs: Patchy bilateral airspace disease is again seen, unchanged compared to the prior radiographs. No evidence of a pleural effusion or pneumothorax. Heart/Mediastinum: Heart size normal. Atherosclerotic changes are noted in the aorta. Left [id number] again noted. Bones: No acute abnormality detected. IMPRESSION: Unchanged bilateral patchy airspace disease. Electronically signed by: Ovidio Smith MD 05/10/2020 12:07 PM [facility]
[2020-05-10] MEDS ORDERED: SODIUM BICARBONATE VIAL 50 MEQ/50 ML VIAL ONE (14:05)
[2020-05-10] MEDS ORDERED: DEX 5% W/NACL 0.9% 1000ML 1,000 ML IVS ONE (14:05)
[2020-05-10] MEDS: AZITHROMYCIN IV 500 MG in SODIUM CHLORIDE 0.9% 250ML 250 ML IVPB SCH (16:51)
[2020-05-10] MEDS: PANTOPRAZOLE SODIUM TAB 40 MG PO SCH (16:52)
[2020-05-10] MEDS ORDERED: MEMANTINE 10 MG TAB ONE (21:45)
[2020-05-10] MEDS: cefTRIAXone SODIUM 1 GM in SODIUM CHL 0.9% 50ML MIN-BAG+ 50 ML IVPB SCH (21:52)
[2020-05-10] MEDS: QUEtiapine FUMARATE 25 MG TAB PO SCH (21:54)
[2020-05-10] MEDS: MEMANTINE HCL 21 MG PO SCH (21:55)
[2020-05-10] MEDS: PRAVASTATIN SODIUM 20 MG TAB PO SCH (21:55)
[2020-05-10] MEDS: CARVEDILOL 3.125 MG TAB PO SCH (21:56)
[2020-05-10] MEDS: HEPARIN SODIUM (PORCINE) 5,000 U/ML VIAL SUBCU SCH (21:56)
[2020-05-10] MEDS: guaiFENesin ER TAB 600 MG TAB PO SCH (21:57)
[2020-05-10] MEDS: VORTIOXETINE HBR 20 MG PO SCH (22:14)
[2020-05-11] MEDS ORDERED: SODIUM BICARBONATE VIAL 50 MEQ/50 ML VIAL ONE (01:50)
[2020-05-11] MEDS ORDERED: DEXTROSE 5% 1000ML 1,000 ML IVS ONE (01:50)
[2020-05-11] MEDS: SODIUM BICARBONATE SYRINGE 100 MEQ in DEXTROSE 5% 1000ML 1,000 ML IV PRN (01:55)
[2020-05-11] MEDS: PANTOPRAZOLE SODIUM TAB 40 MG PO SCH ×2 (06:31→16:18)
--- NOTE | 2020-05-11 08:32 | PN ---
SUPERVISING PHYSICIAN: Gabe Posadas MD DATE: 05/10/20 SUBJECTIVE: The patient is sitting up in bed reading. She feels much better than yesterday, but still is somewhat short of breath at times. She denies nausea or vomiting. OBJECTIVE: VITAL SIGNS: Temperature 98.2, heart rate 76, blood pressure 123/81, respiratory rate 20, O2 saturation 95% on room air. RESPIRATORY: Somewhat diminished at the bases with a few scattered rhonchi. CARDIAC: Regular rate and rhythm. GASTROINTESTINAL: Abdomen is soft, nondistended, nontender. Bowel sounds are positive. NEUROLOGIC: Awake, alert and oriented times three although she has difficulty remembering certain things and seems to be forgetful. At times, there is very mild slurring of her speech. Her casino manager are equal. Pupils are equal and reactive. Her tongue is midline. LABORATORY: WBCs 4.5, hemoglobin 8, hematocrit 22.7. Sodium is 130, potassium 4, chloride 97, carbon dioxide 20, BUN 52, creatinine 4.28. Calcium 7.4. C- reactive protein 21. MICROBIOLOGY: Urine culture is pending. Preliminary blood cultures show no growth after 24 hours. RADIOLOGY: Chest x-ray shows unchanged bilateral patchy airspace disease. Renal ultrasound shows 1) Bilateral kidneys show minimal increased echogenicity of the cortex and cortical thinning. No echogenic stones or hydronephrosis. Urinary bladder visualized with bilateral intravesicular ureteral jets seen by color Doppler. 2) Bilateral renal aortic ratios indicating no evidence of significant stenosis. Proximal ureters cannot be evaluated. 3) Decreased end diastolic ratios and increased intrarenal resistive indices of the bilateral kidneys indicating significant bilateral renovascular parenchymal disease. All other labs and films have been reviewed via the EMR. ASSESSMENT: 1. Perihilar community acquired pneumonia with apparent failed outpatient therapy. 2. Altered mental status which initially was felt to be metabolic encephalopathy. 3. Transient ischemic attack versus cerebrovascular accident with some mild altered mental status with speech difficulties. 4. Recent fall resulting in occipital laceration with no other acute findings on workup. 5. History of frequent urinary tract infections. 6. Parenchymal disease as per ultrasound. PLAN: We will continue her on the pneumonia guidelines with Rocephin and azithromycin. I will repeat her labs tomorrow. I have also decreased her IV fluids and will get an MRI of the brain tomorrow due to her altered mental status that has not fully resolved. I have added neuro checks and we will need to remove the sutures in the next day or so. #[id number] MTDD
[2020-05-11] MEDS: GABAPENTIN 300 MG CAP PO SCH ×2 (08:33→20:47)
[2020-05-11] MEDS: busPIRone HCL 5 MG TAB PO SCH (08:33)
[2020-05-11] MEDS: guaiFENesin ER TAB 600 MG TAB PO SCH ×2 (08:33→20:46)
[2020-05-11] MEDS: HEPARIN SODIUM (PORCINE) 5,000 U/ML VIAL SUBCU SCH ×2 (08:33→20:47)
[2020-05-11] MEDS: CARVEDILOL 3.125 MG TAB PO SCH ×2 (08:33→20:47)
[2020-05-11] MEDS: METRONIDAZOLE TOP SCH ×2 (08:37→20:48)
[2020-05-11] MEDS: ESTROGENS CONJUGATED 0.3 MG PO SCH (08:37)
[2020-05-11] MEDS: BIFIDOBACTERIUM INFANTIS 4 MG CAP PO SCH (08:40)
--- NOTE | 2020-05-11 10:08 | MRI ---
EXAM DESCRIPTION: Brain w/o Contrast: MRI. CLINICAL HISTORY: TIA VERSUS CVA COMPARISON: MRI scan brain without contrast March 08 TECHNIQUE: Multiplanar, high-field MRI unit, multiple diffusion sequences, multiple conventional sequences without contrast. FINDINGS: Bilateral mild confluent hyperintense FLAIR and T2-weighted signal in the periventricular white matter extending to the bilateral centrum semiovale, frontoparietal and occipital lobes. Small focus of hyperintense signal in the sub-cortical white matter of the frontal lobes. No hemorrhage, no cerebral edema, no midline shift.. No diffusion restriction. Normal signal in the bilateral basal ganglia. Normal signal in the brainstem and cerebellar hemispheres. Concordance of the diffusion and non-diffusion sequences with no diffusion restriction. Cortical sulci, ventricles, and other CSF spaces, and the subdural spaces are normally configured for the patient's age with the exception of increased bilateral frontal cortical atrophy. No effacement or displacement. No midline shift. No extra-axial hemorrhage. Normal flow signal void in the major vessels of the [place], and the venous sinuses. IACs are symmetric bilaterally. Small focus of fluid signal in one cell in the left mastoid air cells. Normal signal right mastoid air cells. No mass effect in the lateral cerebellopontine angles. Pituitary gland occupies the base of the sella. Base of the cerebellar tonsils is at the level of the foramen magnum. Mucoperiosteal thickening in the paranasal sinuses.. The bony calvarium is intact. IMPRESSION: 1. Mild white matter signal changes predominantly periventricular and all lobes and also subcortical white matter of the frontal lobes. No intra-axial or extra-axial hemorrhage, no mass effect or midline shift. No abnormal cerebral edema. No diffusion restriction. 2. Normal diffusion noncontrast MRI study with no evidence of significant recent ischemia or subacute or acute infarction. 3. Chronic sinusitis in the paranasal air cells. Mild inflammatory changes left mastoid air cells. Electronically signed by: Felton Monroe MD 05/11/2020 10:07 AM [facility]
[2020-05-11] MEDS: IPRATROPIUM/ALBUTEROL 3 ML VIAL INH SCH ×4 (10:10→20:10)
--- NOTE | 2020-05-11 10:12 | RAD ---
EXAM DESCRIPTION: Chest,2 Views: CR/DR CLINICAL HISTORY: 80 years Female cap COMPARISON: None. TECHNIQUE: Two views. PA and Lateral. FINDINGS: Lungs: Air trapping bilaterally. Interstitial process is increasing bilaterally in the perihilar regions, especially on the left. Small consolidation in the left base. Pleural spaces: No effusion or pneumothorax bilaterally. Heart: Normal size. Pulmonary Vascularity: Not increased. Mediastinum: Not widened. Aorta: Unremarkable. Stable position of central line. Bony Thorax/Spine: No acute bony thoracic abnormalities. Millicuries bone density. IMPRESSION: Bilateral progression of perihilar infiltrate and infiltrate in the left base compared to the prior study. Imaging features can be seen with COVID-19 and viral pneumonia, though are nonspecific and can occur with a variety of infectious and noninfectious processes. Electronically signed by: Felton Monroe MD 05/11/2020 10:10 AM [facility]
[2020-05-11] MEDS: HYDROcodone 5MG/APAP 325MG 1 EA TAB PO PRN (10:30)
[2020-05-11] MEDS: AZITHROMYCIN IV 500 MG in SODIUM CHLORIDE 0.9% 250ML 250 ML IVPB SCH (16:18)
[2020-05-11] MEDS: cefTRIAXone SODIUM 1 GM in SODIUM CHL 0.9% 50ML MIN-BAG+ 50 ML IVPB SCH (20:00)
[2020-05-11] MEDS: QUEtiapine FUMARATE 25 MG TAB PO SCH (20:46)
[2020-05-11] MEDS: PRAVASTATIN SODIUM 20 MG TAB PO SCH (20:46)
[2020-05-11] MEDS ORDERED: MEMANTINE 10 MG TAB ONE (20:51)
[2020-05-11] MEDS: MEMANTINE HCL 21 MG PO SCH (20:51)
[2020-05-11] MEDS: VORTIOXETINE HBR 20 MG PO SCH (20:53)
[2020-05-12] MEDS: PANTOPRAZOLE SODIUM TAB 40 MG PO SCH ×2 (05:59→16:28)
[2020-05-12] MEDS: HYDROcodone 5MG/APAP 325MG 1 EA TAB PO PRN ×2 (06:08→21:23)
--- NOTE | 2020-05-12 06:45 | RAD ---
EXAM: XR Chest, 2 Views CLINICAL HISTORY: The patient is 80 years old and is Female; pna TECHNIQUE: Frontal and lateral views of the chest. COMPARISON: Chest radiograph May 11, 2020 FINDINGS: LUNGS: Surgical clips project within the left lower lobe. Persistent patchy airspace opacity specifically in the left lung are noted and stable. Scarring within left lower lobe is present. PLEURAL SPACE: Unremarkable. No pneumothorax. HEART: Unremarkable. No cardiomegaly. MEDIASTINUM: Unremarkable. BONES/JOINTS: Unremarkable. TUBES, LINES AND DEVICES: Left chest port is stable in position. IMPRESSION: Stable chest. Electronically signed by: Iveth Sung MD 05/12/2020 6:43 AM [employer]
[2020-05-12] MEDS: IPRATROPIUM/ALBUTEROL 3 ML VIAL INH SCH ×4 (08:30→20:15)
[2020-05-12] MEDS: ESTROGENS CONJUGATED 0.3 MG PO SCH (08:46)
[2020-05-12] MEDS: CARVEDILOL 3.125 MG TAB PO SCH ×2 (08:47→21:20)
[2020-05-12] MEDS: BIFIDOBACTERIUM INFANTIS 4 MG CAP PO SCH (08:47)
[2020-05-12] MEDS: GABAPENTIN 300 MG CAP PO SCH ×2 (08:48→21:20)
[2020-05-12] MEDS: busPIRone HCL 5 MG TAB PO SCH (08:48)
[2020-05-12] MEDS: guaiFENesin ER TAB 600 MG TAB PO SCH ×2 (08:49→21:21)
[2020-05-12] MEDS: HEPARIN SODIUM (PORCINE) 5,000 U/ML VIAL SUBCU SCH ×2 (08:59→21:22)
[2020-05-12] MEDS: METRONIDAZOLE TOP SCH ×2 (09:02→22:39)
--- NOTE | 2020-05-12 09:20 | PN ---
SUPERVISING PHYSICIAN: Gabe Posadas MD DATE: 05/11/20 SUBJECTIVE: The patient is sitting up in bed reading. She continues to feel better, although she does admit she is confused at times and has difficulty with her words. Denies any nausea or vomiting.. OBJECTIVE: VITAL SIGNS: Temperature 98.4, heart rate 93, blood pressure 115/75, respiratory rate 18, O2 saturation 93% on room air. RESPIRATORY: Diminished at the bases, otherwise clear to auscultation. CARDIAC: Regular rate and rhythm. GASTROINTESTINAL: Abdomen is soft, nondistended, nontender. Bowel sounds are positive. NEUROLOGIC: Awake, alert and oriented times three. She does continue to slur her words at times and loses her train of thought but hand director federal are equal bilaterally. Tongue is midline. Cranial nerves II through XII are grossly intact as tested. LABORATORY: WBCs 3.3, hemoglobin 8.7, hematocrit 25.5. D-dimer 3,140. Electrolytes are basically within normal limits with the exception calcium slightly low at 8.1, magnesium slightly high at 2.6. BUN 45, creatinine3.09. C-reactive protein 21.1. Preliminary blood cultures show no growth after 48 hours. Preliminary; urine culture shows no growth after 24 hours. RADIOLOGY: Chest x-ray shows bilateral progression of perihilar infiltrate and infiltrate in the left lung base compared to the prior study. Imaging feature can be seen with Covid19 though a nonspecific can occur with a variety of infections and noninfectious process. Brain MRI shows: 1. White matter signal changes predominantly paraventricular in all lobes and also subcortical white matter of the frontal lobes, no intraaxial or extraaxial hemorrhage, mass effect or midline shift. No abnormal cerebral edema, no diffusion restriction. 2. Normal diffusion contrast MRI study shows no evidence of significant recent ischemia or subacute or acute infarction. 3. Chronic sinusitis in the paranasal cells, mild inflammatory changes, left mastoid air cells. ASSESSMENT: 1. Perihilar community acquired pneumonia with apparent failed outpatient therapy. 2. Altered mental status which initially was felt to be metabolic encephalopathy. 3. Transient ischemic attack versus cerebrovascular accident with some mild altered mental status with speech difficulties. 4. Acute renal failure that is slowly improving. 5. Recent fall resulting in occipital laceration with no other acute findings on workup. 6. History of frequent urinary tract infections. 7. Parenchymal disease as per renal ultrasound. 8. Anemia of unknown etiology. PLAN: We will continue present supportive care. I will order lab and chest x- ray in the morning. I discussed her case with her primary care physician, Dr. Fontana, and he felt that her creatinine should be in the low 2s prior to discharge. He would followup with her closely. She may need speech therapy on discharge if she does have [facility]. At this point, we will continue with her antibiotics an aggressive pulmonary hygiene. I have discontinued her fluids and will also monitor her renal function in the morning. Hopefully, it will continue to improve. #[id number] MTDD
[2020-05-12] MEDS: IV SET AND CAP CHANGE INJ INJ SCH (16:25)
[2020-05-12] MEDS: AZITHROMYCIN IV 500 MG in SODIUM CHLORIDE 0.9% 250ML 250 ML IVPB SCH (17:07)
[2020-05-12] MEDS ORDERED: cefTRIAXone SODIUM 1 GM VIAL ONE (18:15)
[2020-05-12] MEDS ORDERED: SODIUM CHL 0.9% 50ML MIN-BAG+ 50 ML IVPB ONE (18:15)
[2020-05-12] MEDS: cefTRIAXone SODIUM 1 GM in SODIUM CHL 0.9% 50ML MIN-BAG+ 50 ML IVPB SCH (19:21)
[2020-05-12] MEDS ORDERED: MEMANTINE 10 MG TAB ONE (20:04)
[2020-05-12] MEDS: PRAVASTATIN SODIUM 20 MG TAB PO SCH (21:21)
[2020-05-12] MEDS: MEMANTINE HCL 21 MG PO SCH (21:21)
[2020-05-12] MEDS: QUEtiapine FUMARATE 25 MG TAB PO SCH (21:22)
[2020-05-12] MEDS: VORTIOXETINE HBR 20 MG PO SCH (22:39)
[2020-05-13] MEDS: PANTOPRAZOLE SODIUM TAB 40 MG PO SCH ×2 (06:12→16:06)
[2020-05-13] MEDS: IPRATROPIUM/ALBUTEROL 3 ML VIAL INH SCH ×4 (08:36→20:41)
--- NOTE | 2020-05-13 09:50 | PN ---
SUPERVISING PHYSICIAN: Gabe Posadas MD DATE: 05/12/20 SUBJECTIVE: The patient is resting. She is still a little weak and says she has not really had any significant shortness of breath but says she feels like she is feeling a little bit better in the last 12-24 hours. She does not show any confusion at time of my exam and converses without difficulty. OBJECTIVE: VITAL SIGNS: Temperature 97.9, pulse 86, blood pressure 136/81, respirations 18, oxygen saturation 98% on half liter nasal cannula. GENERAL: The patient is resting comfortably. Does not look to be in any distress. CHEST: Lung sounds fairly clear, just a little diminished. HEART: Regular rate and rhythm. ABDOMEN: Soft, non-tender, positive bowel sounds. EXTREMITIES: NEUROLOGIC: Alert and oriented x 3. I am not detecting any slurring of her words. She seems to hold conversation easily. Cranial nerves II through XII look to be grossly intact. There is no discernible weakness on exam, no new motor deficits noted. LABORATORY: White count 3,500, hemoglobin 8.2, hematocrit 24.3, platelet count 133,000. Creatinine 1.98 down from 5.11 on admission. Magnesium and calcium normal. Liver functions showing to be within normal limits. Vitamin B12 was greater than 1500. Serum folate greater than 23.6. Iron studies show low TIBC with low iron saturation. MICROBIOLOGY: Blood cultures showing negative for 3 days on 2 sets of blood cultures. Urine culture showed no growth at 48 hours. RADIOLOGY: Chest x-ray this morning per radiology interpretation shows stable chest just within patch airspace opacities specifically in the left lung but noted to be stable. Scarring within the left lower lobe is present. ASSESSMENT: 1. Community acquired pneumonia having failed outpatient management. 2. Metabolic encephalopathy due to dehydration resulting in some acute mental status with patient showing to be returning to baseline levels. 3. Acute renal failure returning to baseline levels due to prerenal azotemia. 4. History of recent falls with occipital laceration with no other acute findings. 5. Iron deficiency anemia. PLAN: I did discuss the case with Dr. Fontana, her primary care physician and he felt like her creatinine was showing good response to treatment. The plan at this point is to keep her until Thursday to make sure she is showing stable labs and see how she does physically on Thursday with physical therapy due to her recent fall. She will continue on antibiotics with azithromycin and Rocephin at least another 24 hours. Hopefully, we will be able to transition her to outpatient Thursday. Until then, we will continue to monitor and treat as needed. #[id number] [facility]
[2020-05-13] MEDS: CARVEDILOL 3.125 MG TAB PO SCH ×2 (09:52→21:07)
[2020-05-13] MEDS: GABAPENTIN 300 MG CAP PO SCH ×2 (09:52→21:07)
[2020-05-13] MEDS: BIFIDOBACTERIUM INFANTIS 4 MG CAP PO SCH (09:52)
[2020-05-13] MEDS: guaiFENesin ER TAB 600 MG TAB PO SCH ×2 (09:52→21:07)
[2020-05-13] MEDS: busPIRone HCL 5 MG TAB PO SCH (09:52)
[2020-05-13] MEDS: HEPARIN SODIUM (PORCINE) 5,000 U/ML VIAL SUBCU SCH ×2 (09:53→21:06)
[2020-05-13] MEDS: METRONIDAZOLE TOP SCH ×2 (09:53→23:35)
[2020-05-13] MEDS: ESTROGENS CONJUGATED 0.3 MG PO SCH (09:53)
[2020-05-13] MEDS ORDERED: IPRATROPIUM/ALBUTEROL 3 ML VIAL NEB ONE (13:26)
[2020-05-13] MEDS: HYDROcodone 5MG/APAP 325MG 1 EA TAB PO PRN ×2 (13:53→19:08)
[2020-05-13] MEDS: AZITHROMYCIN IV 500 MG in SODIUM CHLORIDE 0.9% 250ML 250 ML IVPB SCH (16:06)
[2020-05-13] MEDS: cefTRIAXone SODIUM 1 GM in SODIUM CHL 0.9% 50ML MIN-BAG+ 50 ML IVPB SCH (18:03)
--- NOTE | 2020-05-13 19:36 | PN ---
SUPERVISING PHYSICIAN: Gabe Posadas MD DATE: 05/13/20 SUBJECTIVE: The patient seems to be doing okay, she is resting. She denied nausea or vomiting, she is taking diet well. She has had adequate hydration. She is still a little weak but not having any obvious neuro deficits that I can see. OBJECTIVE: VITAL SIGNS: Temperature 98.9, pulse 72, blood pressure 130/76, respirations 16, oxygen saturation 95% on room air at rest. GENERAL: The patient is resting comfortably. Does not look to be in any distress. CHEST: Lung sounds fairly clear, just a little diminished. HEART: Regular rate and rhythm. ABDOMEN: Soft, non-tender, positive bowel sounds. EXTREMITIES: NEUROLOGIC: Alert and oriented x 3. I am not detecting any slurring of her words. She seems to hold conversation easily. Cranial nerves II through XII look to be grossly intact. There is no discernible weakness on exam, no new motor deficits noted. LABORATORY: Creatinine down to 1.5. ASSESSMENT: 1. Community acquired pneumonia having failed outpatient management. 2. Metabolic encephalopathy due to dehydration resulting in some acute mental status with patient showing to be returning to baseline levels. 3. Acute renal failure returning to baseline levels due to prerenal azotemia. 4. History of recent falls with occipital laceration with no other acute findings. 5. Iron deficiency anemia. PLAN: We will continue current plan of care at this [facility]. We will get a physical therapy evaluation in the morning. I anticipate discharge tomorrow. She will need to follow with Dr. Fontana. I have kept Dr. Fontana in the loop as far as the plan of care. Hopefully she will discharge tomorrow. Until then, we will continue to monitor and treat as needed. #[id number] [facility]
[2020-05-13] MEDS ORDERED: MEMANTINE 10 MG TAB ONE (19:52)
[2020-05-13] MEDS ORDERED: GABAPENTIN 100 MG CAP ONE (19:53)
[2020-05-13] MEDS: MEMANTINE HCL 21 MG PO SCH (21:06)
[2020-05-13] MEDS: PRAVASTATIN SODIUM 20 MG TAB PO SCH (21:07)
[2020-05-13] MEDS: QUEtiapine FUMARATE 25 MG TAB PO SCH (21:07)
[2020-05-13] MEDS: VORTIOXETINE HBR 20 MG PO SCH (23:35)
[2020-05-14] MEDS: PANTOPRAZOLE SODIUM TAB 40 MG PO SCH (06:01)
[2020-05-14] MEDS: HYDROcodone 5MG/APAP 325MG 1 EA TAB PO PRN (06:15)
[2020-05-14] MEDS: IPRATROPIUM/ALBUTEROL 3 ML VIAL INH SCH (08:23)
[2020-05-14] MEDS ORDERED: IPRATROPIUM/ALBUTEROL 3 ML VIAL NEB ONE ×2 (09:15→13:01)
[2020-05-14] MEDS: BIFIDOBACTERIUM INFANTIS 4 MG CAP PO SCH (09:24)
[2020-05-14] MEDS: CARVEDILOL 3.125 MG TAB PO SCH (09:24)
[2020-05-14] MEDS: guaiFENesin ER TAB 600 MG TAB PO SCH (09:24)
[2020-05-14] MEDS: HEPARIN SODIUM (PORCINE) 5,000 U/ML VIAL SUBCU SCH (09:25)
[2020-05-14] MEDS: busPIRone HCL 5 MG TAB PO SCH (09:25)
[2020-05-14] MEDS: ESTROGENS CONJUGATED 0.3 MG PO SCH (09:26)
[2020-05-14] MEDS: METRONIDAZOLE TOP SCH (09:26)
[2020-05-14] MEDS ORDERED: GABAPENTIN 100 MG CAP ONE (09:28)
[2020-05-14] MEDS: GABAPENTIN 300 MG CAP PO SCH (09:29)
[2020-05-14 10:30] VITALS: BP 136/74; TEMP 98.4; O2SAT 93
--- NOTE | 2020-05-14 18:57 | DS ---
SUPERVISING PHYSICIAN: OBED POSADA M.D. DISCHARGE DIAGNOSIS: 1. Community acquired pneumonia having failed outpatient management. 2. Metabolic encephalopathy due to dehydration resulting in some acute mental status with patient showing to be returning to baseline levels. 3. Acute renal failure returning to baseline levels due to prerenal azotemia. 4. History of recent falls with occipital laceration with no other acute findings. 5. Iron deficiency anemia. ADMISSION DIAGNOSIS: 1. Perihilar community acquired pneumonia with apparent failed outpatient therapy. 2. Altered mental status which is likely metabolic encephalopathy. 3. Recent fall resulting in occipital laceration with no other acute findings on workup. 4. History of frequent urinary tract infections. HISTORY OF PRESENT ILLNESS: This is an 80 year-old female patient who is a patient of Dr. Fontana. She apparently fell the prior to coming to the hospital. She ended up going to the Emergency Room. She was not found to have any fractures. She had a laceration on the occipital area which ended up being sutured. She went home. The next day she went to the Emergency Room after that admission due to pain in her left lower back. She was basically sent home again after that. She went to the Emergency Room the next day due to having a fever. Her O2 saturations were in the 70s. Her Covid was negative. She was sent to the Emergency Room that showed an O2 saturation of 92% on room air. She had a chest x-ray that was concerning for a left-sided perihilar infiltrate. She was given a prescription for Augmentin and was sent home. After she got home she had altered mental status and her oxygen saturations were again in the 80s again. Dr. Fontana, her primary care physician, was contacted and he subsequently called for direct admission. HOSPITAL COURSE: She was admitted for failed outpatient treatment of community acquire pneumonia. She was given empiric antibiotics with Rocephin an azithromycin. She had aggressive pulmonary hygiene, including incentive spirometry, scheduled and p.r.n. DuoNeb. A urinalysis was obtained with culture due to her increased confusion. A CT of her chest was also ordered as well as a head CT. Her Covid testing was repeated as well as a Strep. Her kidney function was also quite elevated and a renal aorta ultrasound was also ordered. Fluids with bicarb were given. Her clinical presentation improved. She had some difficulty speaking with periods of difficulty enunciating her words. She also would get easily distracted. An MRI of the brain was ordered. I discussed her case with her primary care physician, Dr. Fontana, and although she continued to improve she continued to have some difficulty with her speech. She continued to have mental status changes. Neuro checks were added. Her creatinine continued to improve. Her Macrodantin was discontinued as that may have contributed to her poor renal function. She continued to have some weakness but her respiratory status improved. Her speech improved and her renal function improved. She has improved to the point now where she will be discharged home today in stable condition. She will have [facility] in close followup with her primary care physician. LABORATORY: Her WBCs started at 6,100 and is now 3,500. Hemoglobin and hematocrit, although low are stable at 8.2 and 24.3. Initially she had a left shift on her differential and that has also normalized. Retic count was 1.4, absolute retic count was 34,160. D-dimer initially was 3,640 and it came down to 3,140. Sodium was initially low at 129 and is now 138. Potassium was slightly high initially at 5.2 and is now 4.8. Chloride 104, carbon dioxide 22, BUN was 56 on admission and is now 21, creatinine was 5.1 and is now 1.5. Calcium was as low as 7.5 and is now 8.8. Magnesium was high at 2.6 and is now 2.1. Iron is 23, TIBC is 236.6, iron saturation 9.7, transferrin is pending, ferritin is 108.1. Liver enzymes are within normal limits. Vitamin B12 is greater than 1,500, serum folate is greater than 23.6. Urinalysis was unremarkable. Final blood cultures show no growth after 5 days. Urine culture showed no growth after [address] showed no acute intracranial findings. No hemorrhage. Chest CT showed: 1. Multifocal bilateral pulmonary infiltrates suspicious for pneumonia. 2. Trace bilateral pulmonary effusions. Aortorenal ultrasound and renal ultrasound showed: 1. Bilateral kidneys show minimal increase in echogenicity at the cortex and cortical thinning. No echogenic stones or hydronephrosis. Urinary bladder visualized with bilateral intravesicular ureteral jets seen by color Doppler. 2. Bilateral renal aortic ratios indicating no evidence of significant stenosis. Proximal ureters cannot be evaluated. 3. Decreased end diastolic ratios and increased intrarenal resistive indices of the bilateral kidneys indicating significant bilateral renovascular parenchymal disease. Brain MRI showed: 1. Mild white matter signal changes predominantly periventricular in all lobes. Also subcortical white matter of the frontal lobes. No intraaxial or extraaxial hemorrhage. No mass effect or midline shift. Normal cerebral edema. No diffusion restriction. 2. Normal diffusion contrast MRI study with no evidence of significant recent ischemia or subacute or acute infarction. 3. Chronic sinusitis in the paranasal air cells. Mild inflammatory changes left mastoid air cells. Final CX showed stable chest. DISCHARGE PLAN: The patient will be discharged home in stable condition. She will have [facility]. She can resume her previous diet and increase her activity as tolerated. She has a followup appointment with Dr. Fontana on 05/15/20 at 11:15 via telehealth. Her Macrobid has been discontinued. If Dr. Fontana wants to continue that he can. For now I have discontinued it due to her poor renal function. In addition to her routine home medications I have added a baby aspirin, Cefdinir and Albuterol sulfate nebs. He can review her MRI as well as other testing. She may possibly need a neuro consult and/or a renal consult. Her speech has much improved. She is to return to the hospital or followup with Dr. Fontana for any problems or complications. DISCHARGE MEDICATIONS 1. Pravastatin. 2. Seroquel. 3. Lunesta. 4. Clonazepam. 5. Memantine. 6. Carvedilol. 7. BuSpar. 8. Xanax. 9. Meloxicam. 10. Cyclobenzaprine. 11. Systane ophthalmic. 12. Metronidazole topical. 13. Maxzide. 14. Trintellix. 15. Hydrocodone. 16. Conjugated estrogen. 17. Gabapentin. 18. Pantoprazole. 19. Ibuprofen. 20. Align. 21. Cefdinir. 22. Guaifenesin. 23. Aspirin. 24. Albuterol. #[id number] MTDD
[2020-05-14] MEDS ORDERED: MEMANTINE 10 MG TAB PO SCH (21:00)
== END 2020-05-14 13:25 | disposition home health service (06) | DRG 193 ==
LOC: MS 15:40
PROVIDERS: ADMIT Nurse Practitioner; ATTEND Nurse Practitioner Acute Care
DX: J18.9 Pneumonia, unspecified organism (principal); G93.41 Metabolic encephalopathy; N17.9 Acute kidney failure, unspecified; D50.9 Iron deficiency anemia, unspecified; R29.6 Repeated falls; R47.89 Other speech disturbances; E78.5 Hyperlipidemia, unspecified; M85.80 Other specified disorders of bone density and structure, unspecified site; Z85.3 Personal history of malignant neoplasm of breast; F32.9 Major depressive disorder, single episode, unspecified; H35.30 Unspecified macular degeneration; Z87.891 Personal history of nicotine dependence; Z87.440 Personal history of urinary (tract) infections

== ENCOUNTER 2020-06-01 09:53 | Emergency (ER) | payer MEDICARE, OTHER ==
--- NOTE | 2020-06-01 10:10 | ED.PDOC ---
History of Present Illness - General Time Seen by Provider: 06/01/20 09:58 Source: patient, RN notes reviewed, Vital Signs reviewed, old records Exam Limitations: no limitations - History of Present Illness Comments: 80 yo pleasant Female presents with one day of cough, congestion, fever of 101 this morning. Was hospitalized with community Acquired pneumonia 3 weeks ago. Was exposed to COVID 5 days ago. Also complains of nausea, body aches, pleuritic chest pain and headache. Also exposed to someone with strep throat. Allergies/Adverse Reactions: Allergies NO KNOWN ALLERGY Allergy (Verified 06/01/20 10:27) Home Medications: Ambulatory Orders Clonazepam 1 mg PO BEDTIME 03/16/16 Eszopiclone [Lunesta] 2 mg PO HS PRN 03/16/16 Pravastatin Sodium [Pravachol] 20 mg PO BEDTIME 03/16/16 QUEtiapine FUMARATE [Seroquel] 50 mg PO HS 03/16/16 Alprazolam [Xanax] 1 mg PO BEDTIME PRN 01/18/20 Buspirone HCl [Buspirone Hydrochloride] 5 mg PO DAILY 01/18/20 Carvedilol 6.25 mg PO BID 01/18/20 Memantine HCl [Memantine Hydrochloride E] 21 mg PO BEDTIME 01/18/20 Cyclobenzaprine HCl [Flexeril] 5 mg PO Q6H PRN #20 tab 05/05/20 Meloxicam 15 mg PO DAILY #14 tab 05/05/20 Estrogens, Conjugated [Premarin] 0.3 mg PO DAILY 05/09/20 Gabapentin 300 mg PO BID 05/09/20 HYDROcodone 5MG/APAP 325MG [[place] 5/325] 1 tablet PO Q4H 05/09/20 Ibuprofen [Advil] 200 mg PO PRN PRN 05/09/20 Metronidazole (Topical) [Metronidazole] 1 applic TOP BID 05/09/20 Pantoprazole Tablet [Protonix] 40 mg PO BID 05/09/20 Polyethy-Prop Glycol Ophth [Systane Ophth] 1 drop BOTH_EYES PRN PRN 05/09/20 Triamterene & Hydrochlorothiaz [Maxzide-25 37.5-25 mg] 1 tab PO DAILY 05/09/20 Vortioxetine HBr [Trintellix] 20 mg PO BEDTIME 05/09/20 Albuterol Sulfate Nebs [Proventil Nebs] 2.5 mg INH Q4H #120 vial 05/14/20 Aspirin [Aspirin 81 Low Dose] 81 mg PO DAILY #30 chw 05/14/20 Bifidobacterium Infantis [Align] 4 mg PO DAILY cap 05/14/20 Cefdinir 300 mg PO BID #14 capsule 05/14/20 guaiFENesin ER TAB [Mucinex Tab] 600 mg PO BID tab 05/14/20 Dexamethasone [Decadron] 4 mg PO DAILY #7 tab 06/01/20 Review of Systems - Review of Systems Constitutional: States: fever, malaise. Denies: chills EENTM: Denies: blurred vision, ear pain, throat pain, mouth pain Respiratory: States: cough. Denies: short of breath Cardiology: Denies: palpitations, syncope Gastrointestinal/Abdominal: States: nausea. Denies: abdominal pain, diarrhea, vomiting Genitourinary: Denies: dysuria Musculoskeletal: States: muscle pain. Denies: joint pain Skin: Denies: rash Neurological: States: headache. Denies: pre-existing deficit Endocrine: Denies: unexplained weight gain, unexplained weight loss Hematologic/Lymphatic: Denies: blood clots, easy bleeding, easy bruising Past Medical History (General) - Patient Medical History Hx Seizures: No Hx Stroke: No Hx Dementia: No Hx Asthma: No Hx of COPD: No Hx Cardiac Disorders: No Hx Congestive Heart Failure: No Hx Pacemaker: No Hx Hypertension: Yes Hx Thyroid Disease: No Hx Diabetes: No Hx Gastroesophageal Reflux: No Hx Cancer: Yes - rec'd chemotherapy. Hx of HIV: No Hx MRSA: No - Vaccination History Hx Tetanus, Diphtheria Vaccination: Yes Hx Influenza Vaccination: Yes Hx Pneumococcal Vaccination: Yes - Social History Hx Tobacco Use: No Hx Alcohol Use: No Hx Substance Use: No Hx Substance Use Treatment: No Hx Depression: No Hx Physical Abuse: No Hx Emotional Abuse: No Family Medical History - Family History Mother Family History: Unknown Physical Exam - Physical Exam General Appearance: Alert, Comfortable, No apparent distress, Well Developed, Well Groomed, Well Hydrated, Well Nourished Eye Exam: bilateral normal ENT Exam: normal ENT inspection, hearing grossly normal, TMs normal Neck: non-tender, full range of motion, supple, normal inspection, trachea midline Respiratory: chest non-tender, lungs clear, normal breath sounds, no respiratory distress, no accessory muscle use Cardiovascular/Chest: normal peripheral pulses, regular rate, rhythm, no edema, no gallop, no JVD, no murmur Gastrointestinal/Abdominal: normal bowel sounds, non tender, soft, no organomegaly, no pulsatile mass Extremity: normal range of motion, non-tender, normal inspection, no pedal edema, no calf tenderness, normal capillary refill 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 after about 5 minutes of medicine infusing patient felt nauseated and face turned red. Medicine stopped, given benadryl and solumedrol. Will obs patient. no evidence of anaphylaxis, but due to flushing of face will not continue with medication. Patient given a small fluid bolus 250 ml for mild elevated Cr. The data reviewed when caring for this patient included: nurse notes, prior records, etc. The history and assessments from nurses notes were reviewed and considered, and the patient's home medication list was also reviewed and considered. My assessment and the results of testing completed here in the ED were discussed with the patient. All questions were answered, and she express understanding of my assessment and the plan. She have been instructed to return if their symptoms worsen, and have been asked to follow up with their primary care physician to recheck today's presenting complaint. Strict return precautions given. requesting pain medication for body and joint pain. I have reviewed medication, benefits, alternatives and side effects. Patient decided to proceed with medication. Hannah Moreno DO #[id number] 06/01/20 11:31 06/01/20 12:27 06/01/20 10:15 STREP A SCREEN CULTURE Stat EKG STAT Pulse Ox, Continuous Monitoring STAT Laboratory Results WBC 3.1 K/mm3 (4.8-10.8) L 06/01/20 10:15 RBC 2.97 M/mm3 (4.20-5.40) L 06/01/20 10:15 Hgb 9.4 gm/dL (12.0-16.0) L 06/01/20 10:15 Hct 28.1 % (36.0-47.0) L 06/01/20 10:15 MCV 94.7 fl (81.0-99.0) 06/01/20 10:15 MCH 31.7 pg (27.0-31.0) H 06/01/20 10:15 MCHC 33.5 g/dL (33.0-37.0) 06/01/20 10:15 RDW 13.4 % (11.5-14.5) 06/01/20 10:15 Plt Count 95 K/mm3 (130-400) L 06/01/20 10:15 MPV 8.1 fl (7.40-10.4) 06/01/20 10:15 Absolute Neuts (auto) 2.10 K/uL (1.8-6.8) 06/01/20 10:15 Absolute Lymphs (auto) 0.30 K/uL (1.0-3.4) L 06/01/20 10:15 Absolute Monos (auto) 0.60 K/uL (0.2-0.8) 06/01/20 10:15 Absolute Eos (auto) 0.10 K/uL (0.0-0.4) 06/01/20 10:15 Absolute Basos (auto) 0.00 K/uL (0.0-0.1) 06/01/20 10:15 Neutrophils % 66.2 % (42.0-78.0) 06/01/20 10:15 Lymphocytes % 10.1 % (20.0-50.0) L 06/01/20 10:15 Monocytes % 20.5 % (2.0-9.0) H 06/01/20 10:15 Eosinophils % 2.5 % (1.0-5.0) 06/01/20 10:15 Basophils % 0.7 % (0.0-2.0) 06/01/20 10:15 PT 10.4 SECONDS (9.0-10.9) 06/01/20 10:15 INR 1.05 (0.9-1.15) 06/01/20 10:15 PTT (SP) 27.4 SECONDS (21.8-31.6) 06/01/20 10:15 Sodium 133 mmol/L (135-145) L 06/01/20 10:15 Potassium 4.8 mmol/L (3.6-5.0) 06/01/20 10:15 Chloride 100 mmol/L (101-111) L 06/01/20 10:15 Carbon Dioxide 23 mmol/L (21-31) 06/01/20 10:15 Anion Gap 14.8 (12-18) 06/01/20 10:15 BUN 21 mg/dL (7-18) H 06/01/20 10:15 Creatinine 1.43 mg/dL (0.6-1.3) H 06/01/20 10:15 BUN/Creatinine Ratio 14.7 (10-20) 06/01/20 10:15 Random Glucose 112 mg/dL (70-105) H 06/01/20 10:15 Serum Osmolality 270.1 mOsm/L (275-295) L 06/01/20 10:15 Calcium 9.2 mg/dL (8.4-10.2) 06/01/20 10:15 Magnesium 1.8 mg/dL (1.8-2.5) 06/01/20 10:15 Total Bilirubin 0.4 mg/dL (0.2-1.0) 06/01/20 10:15 AST 34 IU/L (10-42) 06/01/20 10:15 ALT 17 IU/L (10-60) 06/01/20 10:15 Alkaline Phosphatase 67 IU/L (42-121) 06/01/20 10:15 LD Total 113 IU/L (91-180) 06/01/20 10:15 Troponin I < 0.02 ng/mL (0.01-0.05) 06/01/20 10:15 C-Reactive Protein < 0.8 mg/dL (0-1.0) 06/01/20 10:15 B-Natriuretic Peptide 248.0 pg/ml (0-100) H* 06/01/20 10:15 Serum Total Protein 7.1 gm/dL (6.4-8.2) 06/01/20 10:15 Albumin 3.9 g/dl (3.2-5.5) 06/01/20 10:15 Globulin 3.2 gm/dL (2.3-3.5) 06/01/20 10:15 Albumin/Globulin Ratio 1.2 (1.1-1.9) 06/01/20 10:15 Group A Strep Rapid Negative (NEGATIVE) 06/01/20 10:15 06/01/20 12:28 06/01/20 12:29 06/01/20 12:30 - EKG/XRAY/CT EKG: Sinus - HR 83 Comments: normal intervals, no evidence of acute ischemia. XRAY: chest Departure - Departure Clinical Impression: COVID-19, Dehydration Time of Disposition: 12:03 Disposition: Discharge to Home or Self Care Departure Forms: ED Discharge - Pt. Copy, Patient Portal Self Enrollment Instructions: Coronavirus Disease 2019 (COVID-19) Diet: resume usual diet Activity: increase activity as tolerated Referrals: Kike Fontana III, MD [Primary Care Provider] - 1-5 Days Prescriptions: Dexamethasone [Decadron] 4 mg PO DAILY #7 tab Home Medications: Ambulatory Orders Clonazepam 1 mg PO BEDTIME 03/16/16 Eszopiclone [Lunesta] 2 mg PO HS PRN 03/16/16 Pravastatin Sodium [Pravachol] 20 mg PO BEDTIME 03/16/16 QUEtiapine FUMARATE [Seroquel] 50 mg PO HS 03/16/16 Alprazolam [Xanax] 1 mg PO BEDTIME PRN 01/18/20 Buspirone HCl [Buspirone Hydrochloride] 5 mg PO DAILY 01/18/20 Carvedilol 6.25 mg PO BID 01/18/20 Memantine HCl [Memantine Hydrochloride E] 21 mg PO BEDTIME 01/18/20 Cyclobenzaprine HCl [Flexeril] 5 mg PO Q6H PRN #20 tab 05/05/20 Meloxicam 15 mg PO DAILY #14 tab 05/05/20 Estrogens, Conjugated [Premarin] 0.3 mg PO DAILY 05/09/20 Gabapentin 300 mg PO BID 05/09/20 HYDROcodone 5MG/APAP 325MG [[place] 5/325] 1 tablet PO Q4H 05/09/20 Ibuprofen [Advil] 200 mg PO PRN PRN 05/09/20 Metronidazole (Topical) [Metronidazole] 1 applic TOP BID 05/09/20 Pantoprazole Tablet [Protonix] 40 mg PO BID 05/09/20 Polyethy-Prop Glycol Ophth [Systane Ophth] 1 drop BOTH_EYES PRN PRN 05/09/20 Triamterene & Hydrochlorothiaz [Maxzide-25 37.5-25 mg] 1 tab PO DAILY 05/09/20 Vortioxetine HBr [Trintellix] 20 mg PO BEDTIME 05/09/20 Albuterol Sulfate Nebs [Proventil Nebs] 2.5 mg INH Q4H #120 vial 05/14/20 Aspirin [Aspirin 81 Low Dose] 81 mg PO DAILY #30 chw 05/14/20 Bifidobacterium Infantis [Align] 4 mg PO DAILY cap 05/14/20 Cefdinir 300 mg PO BID #14 capsule 05/14/20 guaiFENesin ER TAB [Mucinex Tab] 600 mg PO BID tab 05/14/20 Dexamethasone [Decadron] 4 mg PO DAILY #7 tab 06/01/20 Additional Instructions: Tylenol as needed for pain or fever. Do not take medications called NSAIDS (Ibuprofen, alleve, naproxen, Advil) while on steroids. Take the steroids with food. If at any time you become short of breath return to the emergency department for evaluation or as needed.
[2020-06-01 10:34] VITALS: O2SAT 96
[2020-06-01] MEDS ORDERED: SODIUM CHLORIDE 0.9% 250ML 250 ML ONE (11:03)
--- NOTE | 2020-06-01 11:09 | RAD ---
PROCEDURE: XR Chest, 1 View CLINICAL INDICATION: The patient is 80 years old and is Female; cough MAIN TECHNIQUE: Frontal view of the chest. COMPARISON: XR CHEST from 05/12/2020 FINDINGS: LUNGS: Interval clearing of the patchy pulmonary edema bilaterally. PLEURAL SPACE: There is no pneumothorax. There are no pleural effusions noted. HEART: The heart size is normal. MEDIASTINUM: The mediastinal contour is normal. BONES/JOINTS: There are degenerative changes of the spine identified. SOFT TISSUES: Surgical clips over the LEFT lower chest wall. VASCULATURE: Pulmonary vascularity is not engorged. TUBES, LINES AND DEVICES: There is a stable left chest port in place. IMPRESSION: Interval clearing of the patchy pulmonary edema bilaterally. Electronically signed by: Elieser Carpenter MD 06/01/2020 11:07 AM [facility]
[2020-06-01] MEDS ORDERED: diphenhydrAMINE HCL 50 MG/ML VIAL ONE (11:23)
[2020-06-01] MEDS ORDERED: methylPREDNISolone SODIUM SUC 125 MG/2 ML VIAL ONE (11:24)
[2020-06-01] MEDS ORDERED: diphenhydrAMINE HCL 50 MG/ML VIAL IV ONE (11:25)
[2020-06-01] MEDS ORDERED: methylPREDNISolone SODIUM SUC 125 MG/2 ML VIAL IV ONE (11:25)
[2020-06-01] MEDS ORDERED: SODIUM CHLORIDE 0.9% 250ML 250 ML IVS ONE (11:42)
[2020-06-01 12:24] VITALS: BP 142/82; TEMP 96.7
== END 2020-06-01 12:26 | disposition home or self-care (01) ==
LOC: ER 09:53
DX: U07.1 COVID-19 (principal); E86.0 Dehydration; I10 Essential (primary) hypertension; Z87.01 Personal history of pneumonia (recurrent); Z85.9 Personal history of malignant neoplasm, unspecified; Z92.21 Personal history of antineoplastic chemotherapy; Z79.899 Other long term (current) drug therapy; Z79.82 Long term (current) use of aspirin
CPT/HCPCS: 36415; 71045; 80053; 83615; 83735; 83880; 84484; 85025; 85610; 85730; 86140; 87070; 87502; 87635; 87880; 93005; J1200; J2930; J7050

== ENCOUNTER 2020-07-06 00:32 | Observation (INO) | payer MEDICARE, OTHER ==
--- NOTE | 2020-07-06 00:34 | ED.PDOC ---
History of Present Illness - General Stated Complaint: Fall, head injury Time Seen by Provider: 07/06/20 00:33 - History of Present Illness Initial Comments: Patient brought in by EMS who reports that she fell while she was walking in her home At approximately 12 AM. Patient has no recall of the events at the time of the fall. She does not know whether she may have passed out before falling or had a loss of consciousness after falling. Patient complains of some pain in her forehead where she struck her head. She denies any neck pain. Patient is not complaining of chest pain, trouble breathing, injuries elsewhere in the body. She does admit to drinking wine earlier tonight. Patient later stated she Tripped over her dog at home. Occurred: just prior to arrival Severity: moderate Pain Location: head Method of Injury: fall Improving Factors: nothing Worsening Factors: nothing Allergies/Adverse Reactions: Allergies NO KNOWN ALLERGY Allergy (Verified 06/01/20 10:27) Home Medications: Ambulatory Orders Clonazepam 1 mg PO BEDTIME 03/16/16 Eszopiclone [Lunesta] 2 mg PO HS PRN 03/16/16 Pravastatin Sodium [Pravachol] 20 mg PO BEDTIME 03/16/16 QUEtiapine FUMARATE [Seroquel] 50 mg PO HS 03/16/16 Alprazolam [Xanax] 1 mg PO BEDTIME PRN 01/18/20 Buspirone HCl [Buspirone Hydrochloride] 5 mg PO DAILY 01/18/20 Carvedilol 6.25 mg PO BID 01/18/20 Memantine HCl [Memantine Hydrochloride E] 21 mg PO BEDTIME 01/18/20 Cyclobenzaprine HCl [Flexeril] 5 mg PO Q6H PRN #20 tab 05/05/20 Meloxicam 15 mg PO DAILY #14 tab 05/05/20 Estrogens, Conjugated [Premarin] 0.3 mg PO DAILY 05/09/20 Gabapentin 300 mg PO BID 05/09/20 HYDROcodone 5MG/APAP 325MG [[place] 5/325] 1 tablet PO Q4H 05/09/20 Ibuprofen [Advil] 200 mg PO PRN PRN 05/09/20 Metronidazole (Topical) [Metronidazole] 1 applic TOP BID 05/09/20 Pantoprazole Tablet [Protonix] 40 mg PO BID 05/09/20 Polyethy-Prop Glycol Ophth [Systane Ophth] 1 drop BOTH_EYES PRN PRN 05/09/20 Triamterene & Hydrochlorothiaz [Maxzide-25 37.5-25 mg] 1 tab PO DAILY 05/09/20 Vortioxetine HBr [Trintellix] 20 mg PO BEDTIME 05/09/20 Albuterol Sulfate Nebs [Proventil Nebs] 2.5 mg INH Q4H #120 vial 05/14/20 Aspirin [Aspirin 81 Low Dose] 81 mg PO DAILY #30 chw 05/14/20 Bifidobacterium Infantis [Align] 4 mg PO DAILY cap 05/14/20 Cefdinir 300 mg PO BID #14 capsule 05/14/20 guaiFENesin ER TAB [Mucinex Tab] 600 mg PO BID tab 05/14/20 Dexamethasone [Decadron] 4 mg PO DAILY #7 tab 06/01/20 Review of Systems - Review of Systems Constitutional: States: no symptoms reported EENTM: States: no symptoms reported Respiratory: States: no symptoms reported Cardiology: States: no symptoms reported Gastrointestinal/Abdominal: States: no symptoms reported Genitourinary: States: no symptoms reported Musculoskeletal: States: no symptoms reported Neurological: States: no symptoms reported Endocrine: States: no symptoms reported Hematologic/Lymphatic: States: no symptoms reported Past Medical History (General) - Patient Medical History Hx Seizures: No Hx Stroke: No Hx Dementia: No Hx Asthma: No Hx of COPD: No Hx Cardiac Disorders: No Hx Congestive Heart Failure: No Hx Pacemaker: No Hx Hypertension: Yes Hx Thyroid Disease: No Hx Diabetes: No Hx Gastroesophageal Reflux: No Hx Renal Disease: No Hx Cancer: Yes - rec'd chemotherapy. Hx of HIV: No Hx MRSA: No - Vaccination History Hx Tetanus, Diphtheria Vaccination: Yes Hx Influenza Vaccination: Yes Hx Pneumococcal Vaccination: Yes - Social History Hx Tobacco Use: No Hx Alcohol Use: No Hx Substance Use: No Hx Substance Use Treatment: No Hx Depression: No Hx Physical Abuse: No Hx Emotional Abuse: No Family Medical History - Family History Mother Family History: Unknown Physical Exam - Physical Exam General Appearance: Alert, Comfortable Head Injury: contusions, lacerations - 2 and half centimeter superficial linear laceration over the left temporal area., swelling, tenderness, other - Swelling tenderness and discoloration in the left forehead area. There is dried blood and large amount on the left side of the Scalp but there is no deformity Or active bleeding. ENT Exam: hearing grossly normal, other - Bilateral hearing aids. No hemotympanum present. Neck Exam: non-tender, full range of motion, other - No spasm or pain on range of motion Cardiovascular/Respiratory: regular rate, rhythm, no M/R/G, normal breath sounds, other - Thorax nontender without deformity Gastrointestinal/Abdominal: normal bowel sounds, non tender, soft Back Exam: normal inspection, no CVA tenderness, no vertebral tenderness Extremity Exam: non-tender, no pedal edema, other - Dorsum right hand with 8 cm superficial skin tear. No swelling or tenderness of the hand with full range of motion of the wrist and all digits. Sensation and capillary refill are normal in all digits. 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 Skin Exam: normal color - [place] Com[place] Score Best Eye Response ([place]): (4) open spontaneously Best Verbal Response ([place]): (5) oriented Best Motor Response ([place]): (6) obeys commands Progress - Progress Progress: 07/06/20 02:22 Tetanus shot given. Dorsal Right hand had 8 CM superficial skin tear Without soft tissue swelling or tenderness. Skin tear was repaired with Steri-Strips with benzoin and compressive clean gauze dressing. At 2:20 AM I discussed this patient with nurse practitioner Agnes Best, hospitalist on-call for [facility]. She agreed to admit the patient to the hospital for observation. Medical decision makin-year-old female who fell at home suffering a laceration to her head. Patient has a negative CT and normal neurological exam. Her mental status is normal. She is not complaining oF Headache, nausea vomiting, neurological symptoms or other symptoms suggestive of a concussion or closed head injury. Patient's fall was likely due to a combination of alcohol and multiple medications which Have sedative effects, particularly when combined with alcohol. Patient has a positive Covid test but no symptoms. It is likely a false positive from her prior infection which occurred 1 month ago. - Results/Orders Results/Orders: Electrocardiogram normal sinus rhythm, 69 a minute, first-degree AV block, otherwise normal EKG. 07/06/20 00:45 EKG STAT 07/06/20 00:50 Head [CT] Stat 07/06/20 01:38 RAPID SARS-CoV-2 RNA Stat Laboratory Results - last 24 hr 07/06/20 07/06/20 07/06/20 01:10 01:10 01:10 WBC 4.3 L RBC 3.04 L Hgb 9.8 L Hct 29.6 L MCV 97.1 MCH 32.4 H MCHC 33.3 RDW 14.7 H Plt Count 120 L MPV 7.8 Absolute Neuts (auto) 2.00 Absolute Lymphs (auto) 1.50 Absolute Monos (auto) 0.50 Absolute Eos (auto) 0.20 Absolute Basos (auto) 0.00 Neutrophils % 47.0 Lymphocytes % 35.7 Monocytes % 11.8 H Eosinophils % 4.6 Basophils % 0.9 Sodium 138 Potassium 4.6 Chloride 104 Carbon Dioxide 23 Anion Gap 15.6 BUN 22 H Creatinine 1.42 H BUN/Creatinine Ratio 15.5 Random Glucose 94 Serum Osmolality 278.8 Calcium 8.9 Total Bilirubin 0.6 AST 31 ALT 14 Alkaline Phosphatase 65 Creatine Kinase 110 CK-MB (CK-2) 5.6 H* CK-MB (CK-2) % Not Reportable Troponin I < 0.02 Serum Total Protein 7.6 Albumin 4.2 Globulin 3.4 Albumin/Globulin Ratio 1.2 Ethyl Alcohol 255.50 H* Nasal swab for rapid COVID-19 test Positive. EXAM: CT Head Without Intravenous Contrast CLINICAL HISTORY: The patient is 80 years old and is Female; fall injury TECHNIQUE: Axial computed tomography images of the head/brain without intravenous contrast. Sagittal and coronal reformatted images were created and reviewed. This CT exam was performed using one or more of the following dose reduction techniques: automated exposure con trol, adjustment of the mA and/or kV according to patient size, and/or use of iterative reconstruction technique. COMPARISON: No relevant prior studies available. FINDINGS: Brain: Prominence of the bifrontal extra-axial spaces. Mild cerebral atrophy. No hemorrhage. No significant white matter disease. Ventricles: Mild ex vacuo dilatation of the lateral ventricles. Bones/joints: Unremarkable. No acute fracture. Soft tissues: Right frontal scalp swelling. Sinuses: Unremarkable as visualized. Mastoid air cells: Unremarkable as visualized. No mastoid effusion. IMPRESSION: Right frontal scalp swelling. No acute intracranial abnormality. Electronically signed by: Norbert Stringer MD 07/06/2020 2:05 AM [facility] PCR COVID-19 testing negative. Procedures - Laceration/Wound Repair Left Head Wound Length (cm): 2 Wound's Depth, Shape: superficial, linear Wound Explored: clean Irrigated w/ Saline (cc's): 200 Betadine Prep?: Yes Anesthesia: 1% Lidocaine Wound Repaired With: sutures Suture Size/Type: 4:0 Number of Sutures: 3 Layer Closure?: No Departure - Departure Clinical Impression: Fall, Laceration ICD-10 Supporting Text: Fall from ground-level. Laceration 2 cm to left temporal scalp. Disposition: Admit Patient Home Medications: Ambulatory Orders Clonazepam 1 mg PO BEDTIME 03/16/16 Eszopiclone [Lunesta] 2 mg PO HS PRN 03/16/16 Pravastatin Sodium [Pravachol] 20 mg PO BEDTIME 03/16/16 QUEtiapine FUMARATE [Seroquel] 50 mg PO HS 03/16/16 Alprazolam [Xanax] 1 mg PO BEDTIME PRN 01/18/20 Buspirone HCl [Buspirone Hydrochloride] 5 mg PO DAILY 01/18/20 Carvedilol 6.25 mg PO BID 01/18/20 Memantine HCl [Memantine Hydrochloride E] 21 mg PO BEDTIME 01/18/20 Cyclobenzaprine HCl [Flexeril] 5 mg PO Q6H PRN #20 tab 05/05/20 Meloxicam 15 mg PO DAILY #14 tab 05/05/20 Estrogens, Conjugated [Premarin] 0.3 mg PO DAILY 05/09/20 Gabapentin 300 mg PO BID 05/09/20 HYDROcodone 5MG/APAP 325MG [[place] 5/325] 1 tablet PO Q4H 05/09/20 Ibuprofen [Advil] 200 mg PO PRN PRN 05/09/20 Metronidazole (Topical) [Metronidazole] 1 applic TOP BID 05/09/20 Pantoprazole Tablet [Protonix] 40 mg PO BID 05/09/20 Polyethy-Prop Glycol Ophth [Systane Ophth] 1 drop BOTH_EYES PRN PRN 05/09/20 Triamterene & Hydrochlorothiaz [Maxzide-25 37.5-25 mg] 1 tab PO DAILY 05/09/20 Vortioxetine HBr [Trintellix] 20 mg PO BEDTIME 05/09/20 Albuterol Sulfate Nebs [Proventil Nebs] 2.5 mg INH Q4H #120 vial 05/14/20 Aspirin [Aspirin 81 Low Dose] 81 mg PO DAILY #30 chw 05/14/20 Bifidobacterium Infantis [Align] 4 mg PO DAILY cap 05/14/20 Cefdinir 300 mg PO BID #14 capsule 05/14/20 guaiFENesin ER TAB [Mucinex Tab] 600 mg PO BID tab 05/14/20 Dexamethasone [Decadron] 4 mg PO DAILY #7 tab 06/01/20 Decision To Admit - Decistion To Admit Decision to Admit Reason: Accidental Injury Decision to Admit Date: 07/06/20 Decision to Admit Time: 02:22
[2020-07-06] MEDS ORDERED: TETANUS-DIPHTHERIA TOXOIDS (TD) SYG IM ONE (00:44)
[2020-07-06] MEDS ORDERED: SODIUM CHLORIDE 0.9% 500ML 500 ML IVS ONE (00:45)
[2020-07-06] MEDS ORDERED: LIDOCAINE 1% 10 ML VIAL INJ ONE (01:22)
--- NOTE | 2020-07-06 02:06 | CT ---
EXAM: CT Head Without Intravenous Contrast CLINICAL HISTORY: The patient is 80 years old and is Female; fall injury TECHNIQUE: Axial computed tomography images of the head/brain without intravenous contrast. Sagittal and coronal reformatted images were created and reviewed. This CT exam was performed using one or more of the following dose reduction techniques: automated exposure control, adjustment of the mA and/or kV according to patient size, and/or use of iterative reconstruction technique. COMPARISON: No relevant prior studies available. FINDINGS: Brain: Prominence of the bifrontal extra-axial spaces. Mild cerebral atrophy. No hemorrhage. No significant white matter disease. Ventricles: Mild ex vacuo dilatation of the lateral ventricles. Bones/joints: Unremarkable. No acute fracture. Soft tissues: Right frontal scalp swelling. Sinuses: Unremarkable as visualized. Mastoid air cells: Unremarkable as visualized. No mastoid effusion. IMPRESSION: Right frontal scalp swelling. No acute intracranial abnormality. Electronically signed by: Norbert Stringer MD 07/06/2020 2:05 AM [facility]
--- NOTE | 2020-07-06 02:13 | RAD ---
EXAM: Chest Radiography COMPARISON: Chest radiograph June 01, 2020 INDICATION: MAIN COVID+ FINDINGS: A single AP view of the chest demonstrates a normal cardiomediastinal silhouette. Left chest port in place. Surgical clips project over the left chest. No pneumothorax or pleural effusion. Mild left basilar opacities are present. Osseous structures are intact. IMPRESSION: Mild left basilar opacities favor atelectasis. Electronically signed by: Hector Cruz MD 07/06/2020 2:11 AM [employer] [facility]
[2020-07-06] MEDS ORDERED: ACETAMINOPHEN 325 MG TAB ONE (02:56)
[2020-07-06] MEDS ORDERED: ACETAMINOPHEN 325 MG TAB PO ONE (03:04)
[2020-07-06 05:22] VITALS: O2SAT 93
[2020-07-06] MEDS ORDERED: SODIUM CHLORIDE 0.9% (FLUSH) 10 ML SYG IV PRN (07:29)
[2020-07-06] MEDS ORDERED: ACETAMINOPHEN 325 MG TAB PO PRN (07:29)
[2020-07-06] MEDS ORDERED: ONDANSETRON INJ 4 MG/2 ML VIAL IV PRN (07:29)
[2020-07-06] MEDS ORDERED: IV SET AND CAP CHANGE INJ INJ SCH (07:30)
[2020-07-06] MEDS ORDERED: PANTOPRAZOLE SODIUM IV 40 MG VIAL IV SCH (07:33)
[2020-07-06] MEDS ORDERED: SODIUM CHLORIDE 0.9% (FLUSH) 10 ML SYG IV SCH (09:00)
[2020-07-06 10:04] VITALS: BP 148/82; TEMP 97.8
--- NOTE | 2020-07-06 18:51 | SSS ---
SUPERVISING PHYSICIAN: Norbert Whittington M.D. DISCHARGE DIAGNOSIS: 1. Concussion secondary to same level fall. 2. Recent fall with resulting laceration to the head and laceration to her right hand. 3. ETOH intoxication. 4. Positive Rapid COVID test. The patient was actually tested positive in May. HISTORY OF PRESENT ILLNESS: This is an 80 year-old female patient who presented to the Emergency Room. She fell when she was walking in her home. She thought that she had tripped on her dog. She did not think she had lost any consciousness, but she had some pain in her forehead where she struck her head. She denied any neck pain or any other trauma other than a laceration to her right hand. Vital signs on admission were temperature 97, heart rate 75, blood pressure 142/83, respiratory rate 18, O2 saturation 97% on room air. WBCs were 4,300 with hemoglobin 9.8, hematocrit 29.6. Electrolytes were within normal limits. She did have a BUN of 22, creatinine 1.42, CK-MB was 5.6 but troponin was 0.02. Alcohol level was 255. Rapid COVID test was positive. COVID test per PCR was negative. She actually tested positive for COVID about 1 month ago. Chest x-ray showed mild left basilar opacities favor atelectasis. Head CT showed right frontal scalp swelling and no acute intracranial abnormality. The patient was placed in observation for possible concussion. PAST MEDICAL HISTORY: 1. Hyperlipidemia,. 2. Diverticulosis. 3. C-Diff in the pat. 4. Frequent urinary tract infections. 5. Osteopenia. 6. Migraine headaches. 7. Breast cancer. 8. Depression. 9. Macular degeneration. PAST SURGICAL HISTORY: 1. Dilatation and curettage. 2. Hysterectomy. 3. Tonsillectomy and adenoidectomy. 4. Subclavian port placement. 5. Facelift. 6. Bilateral mastectomies. 7. 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 CURRENT MEDICATIONS: Per the EMR. ALLERGIES: NO KNOWN DRUG ALLERGIES. FAMILY HISTORY: Positive for myocardial infarction, Alzheimer's, coronary artery disease. SOCIAL HISTORY: Recently . She lives in [place]. She quit smoking in 1979 and drinks alcohol socially. There is no history of illicit drug use. REVIEW OF SYSTEMS:: Negative except as per History of Present Illness. PHYSICAL EXAMINATION: VITAL SIGNS: Temperature 97.8, heart rate 69, blood pressure 148/82, respiratory rate 16, O2 saturation 100% on room air. GENERAL: This is an 80 year-old female patient who is lying in her hospital bed. She is in no acute distress. HEENT: Normocephalic. She does have a Coban around her head. It is reported she has a laceration to the right tonsil area with stitches. Pupils are equal and reactive. Oropharynx is clear. NECK: Supple. RESPIRATORY: Essentially clear to auscultation bilaterally. CARDIAC: Regular rate and rhythm. GASTROINTESTINAL: Abdomen is soft, nondistended, nontender. Bowel sounds are positive. EXTREMITIES: She has a laceration to her right hand with Steri-Strips, otherwise no clubbing, cyanosis or edema. NEUROLOGIC: Awake, alert and oriented times three. No focal deficits. HOSPITAL COURSE: The patient was admitted to the hospital and placed in observation. She had neuro checks and her neuro status improved over the next few hours. She had no other complaints of dizziness. Physical Therapy reported that she was safe to go home. She will be discharged home in stable condition. LABORATORY: Labs and films are as per the History of Present Illness. DISCHARGE PLAN: The patient will be discharged home in stable condition. She will have home health as well as physical therapy. She is to resume her previous diet as well as her previous medications. There were no new medications ordered for her. She is to followup with Dr. Fontana in the next week to have the sutures on her head removed. She is to return to the hospital or followup with Dr. Fontana for any problems or complications. DISCHARGE MEDICATIONS: 1. Align. 2. Aspirin. 3. Buspirone. 4. Carvedilol. 5. Clonazepam. 6. Cyclobenzaprine. 7. Gabapentin. 8. Lunesta. 9. Triamterene Hydrochlorothiazide. 10. Meloxicam. 11. Memantine. 12. Guaifenesin. 13. Hydrocodone. 14. Pravastatin. 15. Estrogen. 16. Pantoprazole. 17. Albuterol. 18. Seroquel. 19. Systane ophthalmic. 20. Trintellix. 21. Xanax. #[id number] [facility]
== END 2020-07-06 12:15 | disposition home health service (06) ==
LOC: ER 00:32 → MS 05:07
PROVIDERS: ADMIT Nurse Practitioner Acute Care; ATTEND Nurse Practitioner Acute Care
DX: S06.0X0A Concussion without loss of consciousness, initial encounter (principal); S01.81XA Laceration without foreign body of other part of head, initial encounter; S61.411A Laceration without foreign body of right hand, initial encounter; F10.129 Alcohol abuse with intoxication, unspecified; Y90.8 Blood alcohol level of 240 mg/100 ml or more; U07.1 COVID-19; I10 Essential (primary) hypertension; E78.5 Hyperlipidemia, unspecified; F32.9 Major depressive disorder, single episode, unspecified; I44.0 Atrioventricular block, first degree; Z23 Encounter for immunization; Z79.82 Long term (current) use of aspirin; Z79.1 Long term (current) use of non-steroidal anti-inflammatories (NSAID); Z79.899 Other long term (current) drug therapy; Z95.828 Presence of other vascular implants and grafts; Z85.3 Personal history of malignant neoplasm of breast; Z92.21 Personal history of antineoplastic chemotherapy; Z87.891 Personal history of nicotine dependence; Z90.13 Acquired absence of bilateral breasts and nipples; Z94.7 Corneal transplant status; W01.0XXA Fall on same level from slipping, tripping and stumbling without subsequent striking against object, initial encounter; Y93.01 Activity, walking, marching and hiking; Y92.009 Unspecified place in unspecified non-institutional (private) residence as the place of occurrence of the external cause
CPT/HCPCS: 12001; 90471; 96374; J7040; 90714; 82553; 80053; 85025; 82550; 80320; 84484; 71045; 70450; 97116; 97162; 99285; 93005; G0378; 87581; 87486; 87633; 87635 ×2

== ENCOUNTER → 2020-07-10 | Outpatient (CLI) | payer MEDICARE, OTHER | LOC: GMAL 16:47 | PROVIDERS: ATTEND Family Medicine | DX: D50.8 Other iron deficiency anemias (principal); Z79.899 Other long term (current) drug therapy; N30.00 Acute cystitis without hematuria ==

== ENCOUNTER → 2020-07-30 | Outpatient (CLI) | payer MEDICARE, OTHER | LOC: GMAL 14:57 | PROVIDERS: ATTEND Family Medicine | DX: D50.8 Other iron deficiency anemias (principal); Z79.899 Other long term (current) drug therapy ==